=== PATIENT | female | born 1950 | race African-American/Black ===

== ENCOUNTER 2018-04-15 11:30 | Inpatient (IN) | payer MEDICARE, MEDICAID ==
[~2018-04-15] VITALS: Ht 162.6 cm; Wt 72.7 kg
[2018-04-15 12:11] VITALS: BP 187/91
--- NOTE | 2018-04-15 12:13 | Emergency Room Report ---
History of Present Illness General Chief Complaint: Dizziness Source: Patient Present Illness HPI The patient presents with a strange feeling in her head that began on . It's been intermittent. It was worse when she stood up. She is very clear that it's not spinning in her head. She denies any palpitations, ringing in her ears, chest pain during these episodes. She feels better when she lays back down or is resting. She has occasional nausea but doesn't seem to be associated with these episodes. She denies losing her vision or hearing during these episodes. The patient has a history of hypertension. She was on a diuretic but stopped over a year ago. She's taking other supplements to control her pressure. She was told that she has some problem with her thyroid in the past but never had it worked up. Only blood work was performed. However, she does state she did not tolerate the medicine - it caused irregular heart rate. She denies any cough, fever, chills, dysuria, diarrhea, constipation. She does take bran in her diet and this is caused her stools to be a little bit looser. She's recently had stress at work. She's passed that stressful time at the moment however, she has sustained several losses in her family which continue to affect her. 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 Last Menstrual Period: NA Now: No Reviewed Nursing Documentation: PMH: Agreed; PSxH: Agreed Nursing Documentation-PMH Past Medical History: No History, Except For Hx Hypertension: Yes Review of Systems All Other Systems: negative except mentioned in HPI Physical Exam Vital Signs Date Time Temp Pulse Resp B/P (MAP) Pulse Ox O2 Delivery O2 Flow Rate FiO2 04/15/18 11:35 98.4 96 16 187/91 97 Room Air 98.4 Sp02 EP Interpretation: reviewed, normal General Appearance: well appearing, no apparent distress, GCS 15 Head: normocephalic Eyes: bilateral eye normal inspection ENT: moist mucus membranes Neck: supple, thyromegaly - large irregular goiter, larger on L Respiratory: lungs clear, normal breath sounds Cardiovascular #1: regular rate, rhythm Cardiovascular #2: 2+ radial (R) Gastrointestinal: normal inspection, normal bowel sounds, non tender, no mass, non-distended Musculoskeletal: back normal, gait/station normal, normal range of motion Neurologic: alert, oriented x3, 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 Differential includes acute myocardial infarction, arrhythmia, hypovolemia, electrolyte imbalance, diabetes, stress amongst others. She also has a fairly large goiter at this time and thyroid abnormalities could be contributing to this. Evaluation will be with EKG, chest x-ray and labs. We will be performing orthostatic vital signs. Based on her neurologic exam at this time she is not having a stroke and CT is not indicated. EKG without injury. Labs with normal CBC, elevated ESR. CMP with slightly low potassium, normal renal function, elevated LFTs. UA with pyuria. THS, T4, T3 demonstrated hypothyroidism. Rocephin given for UTI. BP remains high and Norvasc is given. Consideration for starting thyroid, however as she had an adverse reaction in the past, defer to endocrine. Patient somewhat improved, however due to symptomatology, HTN and abnormal labs (liver and thyroid) with goiter, admitted. Admit Dr. Luis brantley. Laboratory Tests Test 04/15/18 11:50 04/15/18 13:20 White Blood Count 5.7 K/UL (4.8-10.8) Red Blood Count 4.14 M/UL (4.20-5.40) L Hemoglobin 12.8 G/DL (12.0-16.0) Hematocrit 40.6 % (37.0-47.0) Mean Corpuscular Volume 98 FL (80-99) Mean Corpuscular Hemoglobin 31.0 PG (27.0-31.0) Mean Corpuscular Hemoglobin Concent 31.6 G/DL (32.0-36.0) L Red Cell Distribution Width 13.1 % (11.6-14.8) Platelet Count 184 K/UL (150-450) Mean Platelet Volume 9.7 FL (6.5-10.1) Neutrophils (%) (Auto) 51.4 % (45.0-75.0) Lymphocytes (%) (Auto) 32.8 % (20.0-45.0) Monocytes (%) (Auto) 14.0 % (1.0-10.0) H Eosinophils (%) (Auto) 1.0 % (0.0-3.0) Basophils (%) (Auto) 0.8 % (0.0-2.0) Erythrocyte Sedimentation Rate 34 MM/HR (0-30) H Prothrombin Time 10.1 SEC (9.30-11.50) Prothrombin Time INR 1.0 (0.9-1.1) PTT 27 SEC (23-33) Sodium Level 136 MMOL/L (136-145) Potassium Level 3.4 MMOL/L (3.5-5.1) L Chloride Level 101 MMOL/L (98-107) Carbon Dioxide Level 30 MMOL/L (21-32) Anion Gap 5 mmol/L (5-15) Blood Urea Nitrogen 12 mg/dL (7-18) Creatinine 0.9 MG/DL (0.55-1.30) Estimate Glomerular Filtration Rate > 60 mL/min (>60) Glucose Level 152 MG/DL (74-106) H Calcium Level 9.1 MG/DL (8.5-10.1) Total Bilirubin 0.8 MG/DL (0.2-1.0) Aspartate Amino Transferase (AST) 137 U/L (15-37) H Alanine Aminotransferase (ALT) 170 U/L (12-78) H Alkaline Phosphatase 631 U/L (46-116) H Total Creatine Kinase 78 U/L (26-308) Troponin I 0.000 ng/mL (0.000-0.056) Pro-B-Type Natriuretic Peptide 193 pg/mL (0-125) H Total Protein 9.2 G/DL (6.4-8.2) H Albumin 3.1 G/DL (3.4-5.0) L Globulin 6.1 g/dL Albumin/Globulin Ratio 0.5 (1.0-2.7) L Thyroid Stimulating Hormone (TSH) 18.001 uiU/mL (0.358-3.740) Free Thyroxine 0.48 NG/DL (0.76-1.46) L Free Triiodothyronine 2.2 pg/mL (2.3-4.2) L Urine Color Yellow Urine Appearance Clear Urine pH 5 (4.5-8.0) Urine Specific [place] 1.025 (1.005-1.035) Urine Protein 1+ (NEGATIVE) H Urine Glucose (UA) Negative (NEGATIVE) Urine Ketones Negative (NEGATIVE) Urine Occult Blood 2+ (NEGATIVE) H Urine Nitrite Negative (NEGATIVE) Urine Bilirubin Negative (NEGATIVE) Urine Urobilinogen 1 MG/DL (0.0-1.0) H Urine Leukocyte Esterase 3+ (NEGATIVE) H Urine RBC 2-4 /HPF (0 - 2) H Urine WBC 15-20 /HPF (0 - 2) H Urine Squamous Epithelial Cells Few /LPF (NONE/OCC) Urine Bacteria Few /HPF (NONE) Urine Mucus Few /LPF (NONE/OCC) H EKG Diagnostic Results Rate: normal Rhythm: NSR ST Segments: no acute changes Rhythm Strip Diag. Results EP Interpretation: yes Rhythm: NSR, no PVC's, no ectopy Last Vital Signs Date Time Temp Pulse Resp B/P (MAP) Pulse Ox O2 Delivery O2 Flow Rate FiO2 04/16/18 09:48 168/104 04/16/18 08:00 97.7 85 22 97 Room Air 97.7 Status: improved Disposition: ADMITTED INPATIENT Condition: Serious Braden Alonso M.D. Apr 15, 2018 12:13
[2018-04-15 12:14] VITALS: BP_SYST 176; BP_SYST 185; BP_SYST 201; BP_DIAS 105; BP_DIAS 86; BP_DIAS 92
[2018-04-15 12:15] LABS: BASOPHILS % (AUTO) 0.8 % (0.0-2.0); HEMATOCRIT 40.6 % (37.0-47.0); HEMOGLOBIN 12.8 G/DL (12.0-16.0); LYMPHOCYTES % (AUTO) 32.8 % (20.0-45.0); MEAN CORPUSCULAR VOLUME 98 FL (80-99); NEUTROPHILS % (AUTO) 51.4 % (45.0-75.0); PLATELET COUNT 184 K/UL (150-450); RED BLOOD COUNT 4.14 M/UL (4.20-5.40); RED CELL DISTRIBUTION WIDTH 13.1 % (11.6-14.8); WHITE BLOOD COUNT 5.7 K/UL (4.8-10.8)
[2018-04-15 12:25] LABS: ANION GAP 5 mmol/L (5-15); BLOOD UREA NITROGEN 12 mg/dL (7-18); CALCIUM 9.1 MG/DL (8.5-10.1); CARBON DIOXIDE 30 MMOL/L (21-32); CHLORIDE 101 MMOL/L (98-107); CREATININE 0.9 MG/DL (0.55-1.30); POTASSIUM 3.4 MMOL/L (3.5-5.1); SODIUM 136 MMOL/L (136-145)
[2018-04-15 12:38] LABS: ALANINE AMINOTRANSFERASE 170 U/L (12-78); ALBUMIN 3.1 G/DL (3.4-5.0); ALBUMIN/GLOBULIN RATIO 0.5 (1.0-2.7); ALKALINE PHOSPHATASE 631 U/L (46-116); ASPARTATE AMINO TRANSFERASE 137 U/L (15-37); BILIRUBIN,TOTAL 0.8 MG/DL (0.2-1.0); CREATINE KINASE 78 U/L (26-308)
[2018-04-15 13:35] LABS: APPEARANCE,URINE CLEAR; BILIRUBIN, URINE NEGATIVE (NEGATIVE); GLUCOSE, URINE (UA) NEGATIVE (NEGATIVE); KETONES,URINE NEGATIVE (NEGATIVE); LEUKOCYTE ESTERASE ,URINE 3+ (NEGATIVE); NITRITE,URINE NEGATIVE (NEGATIVE); PH,URINE 5 (4.5-8.0); PROTEIN,URINE 1+ (NEGATIVE); UROBILINOGEN,URINE 1 MG/DL (0.0-1.0)
[2018-04-15 13:47] LABS: COLOR,URINE YELLOW
[2018-04-15 14:06] VITALS: BP 175/89
[2018-04-15] MEDS ORDERED: cefTRIAXone 1 GM in NS 55 ML IVPB ONE (14:15)
[2018-04-15] MEDS ORDERED: NKM (16:24)
[2018-04-15 16:33] VITALS: BP 170/80
--- NOTE | 2018-04-15 17:40 | Cardiology Report ---
APPROVED REPORT EKG Measurement Heart [id number] Normal sinus rhythm Cannot rule out Anterior infarct, age undetermined Abnormal ECG
[2018-04-15 20:00] VITALS: BP 149/90
[2018-04-15] MEDS: Aspirin Baby 81mg ORAL SCH (20:49)
[2018-04-15] MEDS: Heparin 5000 units/ml inj SUBQ SCH (22:00)
[2018-04-16] VITALS: BP 118/72
[2018-04-16 04:00] VITALS: BP 117/68
[2018-04-16] MEDS: Heparin 5000 units/ml inj SUBQ SCH ×3 (05:13→22:00)
[2018-04-16 08:00] VITALS: BP 168/104
[2018-04-16] MEDS: Aspirin Baby 81mg ORAL SCH (09:47)
--- NOTE | 2018-04-16 11:08 | Consultation ---
History of Present Illness General Date patient seen: Apr 16, 2018 Chief Complaint: Dizziness Present Illness HPI 68-year-old female with history of hypertension, who was also diagnosed with hypothyroidism last year. the pt stated that she stopped her meds. the pt is endorsing low energy and depressed mood. the pt is anxious and has been having anhedonia, no si/hi Allergies: Coded Allergies: No Known Allergies (Unverified , 04/15/18) Medication History Scheduled No Known Medications* (NKM - No Known Medications*), 0 ., (Reported) Patient History Limited by: medical condition History Provided By: Patient, Medical Record, PMD Healthcare decision maker Resuscitation status Advanced Directive on File No Past Medical/Surgical History Past Medical/Surgical History: (1) Goiter (2) UTI (urinary tract infection) (3) Hypothyroid (4) Hypertensive urgency (5) HTN (hypertension) (6) Constipation (7) Hypothyroidism (8) Abnormal LFTs (9) Ataxia Review of Systems Psychiatric: Reports: prior hx, anxiety, depressed feelings, emotional problems Physical Exam General Appearance: WD/WN, no apparent distress, alert Neurologic: oriented x 3, responsive, depressed affect Last 24 Hour Vital Signs Date Time Temp Pulse Resp B/P (MAP) Pulse Ox O2 Delivery O2 Flow Rate FiO2 04/16/18 09:48 168/104 04/16/18 08:00 97.7 85 22 168/104 97 Room Air 97.7 04/16/18 04:00 97.7 87 20 117/68 98 Room Air 97.7 04/16/18 04:00 80 04/16/18 00:00 88 04/16/18 00:00 98.1 77 20 118/72 96 Room Air 98.1 04/15/18 20:49 95 149/90 04/15/18 20:00 98.1 95 21 149/90 96 Room Air 98.1 04/15/18 20:00 95 04/15/18 16:39 98.4 78 17 170/80 99 Room Air 98.4 93 04/15/18 16:33 98.4 78 17 170/80 99 Room Air 98.4 04/15/18 15:21 83 175/89 04/15/18 14:06 98.4 83 16 175/89 99 Room Air 98.4 04/15/18 12:14 85 176/86 88 185/105 93 201/92 04/15/18 12:11 98.4 84 16 187/91 97 Room Air 98.4 04/15/18 11:35 98.4 96 16 187/91 97 Room Air 98.4 Laboratory Tests Test 04/15/18 11:50 04/15/18 13:20 04/16/18 07:05 White Blood Count 5.7 K/UL (4.8-10.8) Red Blood Count 4.14 M/UL (4.20-5.40) L Hemoglobin 12.8 G/DL (12.0-16.0) Hematocrit 40.6 % (37.0-47.0) Mean Corpuscular Volume 98 FL (80-99) Mean Corpuscular Hemoglobin 31.0 PG (27.0-31.0) Mean Corpuscular Hemoglobin Concent 31.6 G/DL (32.0-36.0) L Red Cell Distribution Width 13.1 % (11.6-14.8) Platelet Count 184 K/UL (150-450) Mean Platelet Volume 9.7 FL (6.5-10.1) Neutrophils (%) (Auto) 51.4 % (45.0-75.0) Lymphocytes (%) (Auto) 32.8 % (20.0-45.0) Monocytes (%) (Auto) 14.0 % (1.0-10.0) H Eosinophils (%) (Auto) 1.0 % (0.0-3.0) Basophils (%) (Auto) 0.8 % (0.0-2.0) Erythrocyte Sedimentation Rate 34 MM/HR (0-30) H Prothrombin Time 10.1 SEC (9.30-11.50) Prothromb Time International Ratio 1.0 (0.9-1.1) Activated Partial Thromboplast Time 27 SEC (23-33) Sodium Level 136 MMOL/L (136-145) Potassium Level 3.4 MMOL/L (3.5-5.1) L Chloride Level 101 MMOL/L (98-107) Carbon Dioxide Level 30 MMOL/L (21-32) Anion Gap 5 mmol/L (5-15) Blood Urea Nitrogen 12 mg/dL (7-18) Creatinine 0.9 MG/DL (0.55-1.30) Estimat Glomerular Filtration Rate > 60 mL/min (>60) Glucose Level 152 MG/DL (74-106) H Calcium Level 9.1 MG/DL (8.5-10.1) Total Bilirubin 0.8 MG/DL (0.2-1.0) Aspartate Amino Transf (AST/SGOT) 137 U/L (15-37) H Alanine Aminotransferase (ALT/SGPT) 170 U/L (12-78) H Alkaline Phosphatase 631 U/L (46-116) H Total Creatine Kinase 78 U/L (26-308) Troponin I 0.000 ng/mL (0.000-0.056) Pro-B-Type Natriuretic Peptide 193 pg/mL (0-125) H Total Protein 9.2 G/DL (6.4-8.2) H Albumin 3.1 G/DL (3.4-5.0) L Globulin 6.1 g/dL Albumin/Globulin Ratio 0.5 (1.0-2.7) L Thyroid Stimulating Hormone (TSH) 18.001 uiU/mL (0.358-3.740) 23.511 uiU/mL (0.358-3.740) Free Thyroxine 0.48 NG/DL (0.76-1.46) L Free Triiodothyronine 2.2 pg/mL (2.3-4.2) L Urine Color Yellow Urine Appearance Clear Urine pH 5 (4.5-8.0) Urine Specific [place] 1.025 (1.005-1.035) Urine Protein 1+ (NEGATIVE) H Urine Glucose (UA) Negative (NEGATIVE) Urine Ketones Negative (NEGATIVE) Urine Occult Blood 2+ (NEGATIVE) H Urine Nitrite Negative (NEGATIVE) Urine Bilirubin Negative (NEGATIVE) Urine Urobilinogen 1 MG/DL (0.0-1.0) H Urine Leukocyte Esterase 3+ (NEGATIVE) H Urine RBC 2-4 /HPF (0 - 2) H Urine WBC 15-20 /HPF (0 - 2) H Urine Squamous Epithelial Cells Few /LPF (NONE/OCC) Urine Bacteria Few /HPF (NONE) Urine Mucus Few /LPF (NONE/OCC) H Microbiology Date/Time Source Procedure Growth Status 04/15/18 13:20 Urine,Clean Catch Urine Culture - Preliminary Resulted Height (Feet): 5 Height (Inches): 4.00 Weight (Pounds): 161 Medications Current Medications Medications (Trade) Dose Ordered Sig/Francie Route PRN Reason Start Time Stop Time Status Last Admin Dose Admin Acetaminophen (Tylenol) 650 mg Q6H PRN ORAL For Headache 04/15/18 19:00 05/15/18 18:59 Acetaminophen (Tylenol) 650 mg Q6H PRN ORAL Temp > 100.5 04/15/18 19:00 05/15/18 18:59 Aspirin (ASA) 81 mg DAILY ORAL 04/15/18 20:00 05/15/18 19:59 04/16/18 09:47 Carvedilol (Coreg) 3.125 mg EVERY 12 HOURS ORAL 04/15/18 21:00 05/15/18 20:59 04/15/18 20:49 Clonidine HCl (Catapres Tab) 0.1 mg Q4H PRN ORAL SBP > 160 mmHg 04/15/18 19:00 05/15/18 18:59 04/16/18 09:48 Heparin Sodium (Porcine) (Heparin 5000 units/ml) 5,000 units EVERY 8 HOURS SUBQ 04/15/18 22:00 05/15/18 21:59 Ondansetron HCl (Zofran) 4 mg Q4H PRN IVP Nausea & Vomiting 04/15/18 19:00 05/15/18 18:59 Assessment/Plan Status: stable Assessment/Plan [place] [facility] [place] was restarted on thyroid meds will start low dose antidepressants Erasmo Newton MD Apr 16, 2018 11:08
--- NOTE | 2018-04-16 11:54 | Diagnostic Imaging Report ---
Indication: Dyspnea Comparison: None A single view chest radiograph was obtained. Findings: Cardiomediastinal appearance is within normal limits for age. Pulmonary vascularity is appropriate. The diaphragmatic contour is smooth and costophrenic angles are sharp. No pleural effusions are identified. The bones are unremarkable. Impression: No acute findings
[2018-04-16 12:00] VITALS: BP 135/83
[2018-04-16] MEDS ORDERED: Isovue-300 100ml vial INJ PRN (12:00)
--- NOTE | 2018-04-16 12:00 | History & Physical ---
History and Physical History & Physicial Dictated for Int Med-Dr Smith no. [id number]. Bennie East MD Apr 16, 2018 11:59
--- NOTE | 2018-04-16 12:10 | Consultation ---
History of Present Illness General Date patient seen: Apr 16, 2018 Chief Complaint: Dizziness Present Illness HPI 68 year old female with hx of HTN, off hypertensive meds presented with acute encephalopathy. Her BP was 180's. She has been trying to treat her BP with organic supplements. Allergies: Coded Allergies: No Known Allergies (Unverified , 04/15/18) Medication History Scheduled No Known Medications* (NKM - No Known Medications*), 0 ., (Reported) Patient History Healthcare decision maker Resuscitation status Advanced Directive on File No Past Medical/Surgical History Past Medical/Surgical History: (1) HTN (hypertension) Review of Systems All Other Systems: negative except mentioned in HPI Physical Exam General Appearance: WD/WN Lines, tubes and drains: peripheral HEENT: normocephalic, atraumatic Neck: non-tender, normal alignment Respiratory/Chest: chest wall non-tender, lungs clear Breasts: no masses Cardiovascular/Chest: normal peripheral pulses Abdomen: normal bowel sounds, non tender Genitourinary/Rectal: normal genital exam Extremities: normal range of motion Skin Exam: normal pigmentation 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 Last 24 Hour Vital Signs Date Time Temp Pulse Resp B/P (MAP) Pulse Ox O2 Delivery O2 Flow Rate FiO2 04/16/18 09:48 168/104 04/16/18 08:00 97.7 85 22 168/104 97 Room Air 97.7 04/16/18 04:00 97.7 87 20 117/68 98 Room Air 97.7 04/16/18 04:00 80 04/16/18 00:00 88 04/16/18 00:00 98.1 77 20 118/72 96 Room Air 98.1 04/15/18 20:49 95 149/90 04/15/18 20:00 98.1 95 21 149/90 96 Room Air 98.1 04/15/18 20:00 95 04/15/18 16:39 98.4 78 17 170/80 99 Room Air 98.4 93 04/15/18 16:33 98.4 78 17 170/80 99 Room Air 98.4 04/15/18 15:21 83 175/89 04/15/18 14:06 98.4 83 16 175/89 99 Room Air 98.4 04/15/18 12:14 85 176/86 88 185/105 93 201/92 04/15/18 12:11 98.4 84 16 187/91 97 Room Air 98.4 Laboratory Tests Test 04/15/18 13:20 04/16/18 07:05 Urine Color Yellow Urine Appearance Clear Urine pH 5 (4.5-8.0) Urine Specific [place] 1.025 (1.005-1.035) Urine Protein 1+ (NEGATIVE) H Urine Glucose (UA) Negative (NEGATIVE) Urine Ketones Negative (NEGATIVE) Urine Occult Blood 2+ (NEGATIVE) H Urine Nitrite Negative (NEGATIVE) Urine Bilirubin Negative (NEGATIVE) Urine Urobilinogen 1 MG/DL (0.0-1.0) H Urine Leukocyte Esterase 3+ (NEGATIVE) H Urine RBC 2-4 /HPF (0 - 2) H Urine WBC 15-20 /HPF (0 - 2) H Urine Squamous Epithelial Cells Few /LPF (NONE/OCC) Urine Bacteria Few /HPF (NONE) Urine Mucus Few /LPF (NONE/OCC) H Thyroid Stimulating Hormone (TSH) 23.511 uiU/mL (0.358-3.740) Microbiology Date/Time Source Procedure Growth Status 04/15/18 13:20 Urine,Clean Catch Urine Culture - Preliminary Resulted Height (Feet): 5 Height (Inches): 4.00 Weight (Pounds): 161 Medications Current Medications Medications (Trade) Dose Ordered Sig/Francie Route PRN Reason Start Time Stop Time Status Last Admin Dose Admin Acetaminophen (Tylenol) 650 mg Q6H PRN ORAL For Headache 04/15/18 19:00 05/15/18 18:59 Acetaminophen (Tylenol) 650 mg Q6H PRN ORAL Temp > 100.5 04/15/18 19:00 05/15/18 18:59 Amlodipine Besylate (Norvasc) 10 mg DAILY ORAL 04/16/18 12:00 05/16/18 11:59 Aspirin (ASA) 81 mg DAILY ORAL 04/15/18 20:00 05/15/18 19:59 04/16/18 09:47 Carvedilol (Coreg) 3.125 mg EVERY 12 HOURS ORAL 04/15/18 21:00 05/15/18 20:59 04/15/18 20:49 Ceftriaxone Sodium 1 gm/ Dextrose 55 ml @ 110 mls/hr Q24H IVPB 04/16/18 12:00 04/23/18 11:59 UNV Clonidine HCl (Catapres Tab) 0.1 mg Q4H PRN ORAL SBP > 160 mmHg 04/15/18 19:00 05/15/18 18:59 04/16/18 09:48 Heparin Sodium (Porcine) (Heparin 5000 units/ml) 5,000 units EVERY 8 HOURS SUBQ 04/15/18 22:00 05/15/18 21:59 Iopamidol (Isovue-300 100ml) 100 ml NOW PRN INJ Radiology Procedure 04/16/18 12:00 UNV Levothyroxine Sodium (Synthroid) 100 mcg DAILY@0630 ORAL 04/17/18 06:30 05/17/18 06:29 UNV Ondansetron HCl (Zofran) 4 mg Q4H PRN IVP Nausea & Vomiting 04/15/18 19:00 05/15/18 18:59 Assessment/Plan Problem List: (1) Hypertensive urgency ICD Codes: I16.0 - Hypertensive urgency SNOMED: 461280683 (2) UTI (urinary tract infection) ICD Codes: N39.0 - Urinary tract infection, site not specified SNOMED: 07567974 Qualifiers: Qualified Codes: N30.00 - Acute cystitis without hematuria (3) Goiter ICD Codes: E04.9 - Nontoxic goiter, unspecified SNOMED: 8764947 Assessment/Plan monitor BP telemetry check urine cultures echo cardiogram dvt prophylaxis Cardiology to see. Grupo Kruger MD Apr 16, 2018 12:10
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
[2018-04-16] MEDS: cefTRIAXone 1 GM in D5W 110 ML IVPB SCH (15:09)
[2018-04-16 16:00] VITALS: BP 128/72
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
--- NOTE | 2018-04-16 17:05 | Consultation ---
History of Present Illness General Date patient seen: Apr 16, 2018 Time patient seen: 12:58 Chief Complaint: Dizziness Referring physician: KINZA WEBB Reason for Consultation: TRANAMINITIS Present Illness HPI Patient with HTN and hypothyroidism came in with dizziness and was found to have hypertensive urgency and hypothyroidism. NO previous hx of IL/PE/DVT/CVA Allergies: Coded Allergies: No Known Allergies (Unverified , 04/15/18) Medication History Scheduled No Known Medications* (NKM - No Known Medications*), 0 ., (Reported) Patient History Healthcare decision maker Resuscitation status Advanced Directive on File No Review of Systems Constitutional: Reports: weakness Eye: Reports: no symptoms Respiratory: Reports: no symptoms Cardiovascular: Reports: no symptoms Gastrointestinal: Reports: no symptoms Genitourinary: Reports: no symptoms Musculoskeletal: Reports: no symptoms Skin: Reports: no symptoms Psychiatric: Reports: no symptoms Endocrine: Reports: no symptoms Hematologic/Lymphatic: Reports: no symptoms Physical Exam General Appearance: no apparent distress Lines, tubes and drains: peripheral HEENT: normocephalic Neck: non-tender Respiratory/Chest: chest wall non-tender Cardiovascular/Chest: normal peripheral pulses Abdomen: normal bowel sounds Extremities: normal range of motion, non-tender Skin Exam: normal pigmentation 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 Last 24 Hour Vital Signs Date Time Temp Pulse Resp B/P (MAP) Pulse Ox O2 Delivery O2 Flow Rate FiO2 04/16/18 16:00 97.2 77 20 128/72 96 Room Air 97.2 04/16/18 15:09 80 135/83 04/16/18 12:00 97.0 78 20 135/83 96 Room Air 97.0 04/16/18 12:00 80 04/16/18 09:48 168/104 04/16/18 08:00 97.7 85 22 168/104 97 Room Air 97.7 04/16/18 08:00 88 04/16/18 04:00 97.7 87 20 117/68 98 Room Air 97.7 04/16/18 04:00 80 04/16/18 00:00 88 04/16/18 00:00 98.1 77 20 118/72 96 Room Air 98.1 04/15/18 20:49 95 149/90 04/15/18 20:00 98.1 95 21 149/90 96 Room Air 98.1 04/15/18 20:00 95 Laboratory Tests Test 04/16/18 07:05 Thyroid Stimulating Hormone (TSH) 23.511 uiU/mL (0.358-3.740) Hepatitis A IgM Antibody Pending Hepatitis B Surface Antigen Pending Hepatitis B Core IgM Antibody Pending Hepatitis C Antibody Pending Height (Feet): 5 Height (Inches): 4.00 Weight (Pounds): 161 Medications Current Medications Medications (Trade) Dose Ordered Sig/Francie Route PRN Reason Start Time Stop Time Status Last Admin Dose Admin Acetaminophen (Tylenol) 650 mg Q6H PRN ORAL For Headache 04/15/18 19:00 05/15/18 18:59 Acetaminophen (Tylenol) 650 mg Q6H PRN ORAL Temp > 100.5 04/15/18 19:00 05/15/18 18:59 Amlodipine Besylate (Norvasc) 10 mg DAILY ORAL 04/16/18 12:00 05/16/18 11:59 04/16/18 15:09 Aspirin (ASA) 81 mg DAILY ORAL 04/15/18 20:00 05/15/18 19:59 04/16/18 09:47 Carvedilol (Coreg) 3.125 mg EVERY 12 HOURS ORAL 04/15/18 21:00 05/15/18 20:59 04/15/18 20:49 Ceftriaxone Sodium 1 gm/ Dextrose 110 ml @ 220 mls/hr Q24H IVPB 04/16/18 13:00 04/23/18 12:59 04/16/18 15:09 Clonidine HCl (Catapres Tab) 0.1 mg Q4H PRN ORAL SBP > 160 mmHg 04/15/18 19:00 05/15/18 18:59 04/16/18 09:48 Docusate Sodium (Colace) 100 mg TWICE A DAY ORAL 04/16/18 18:00 05/16/18 17:59 Heparin Sodium (Porcine) (Heparin 5000 units/ml) 5,000 units EVERY 8 HOURS SUBQ 04/15/18 22:00 05/15/18 21:59 Iopamidol (Isovue-300 100ml) 100 ml NOW PRN INJ Radiology Procedure 04/16/18 12:00 04/18/18 11:59 Levothyroxine Sodium (Synthroid) 100 mcg DAILY@0630 ORAL 04/17/18 06:30 05/17/18 06:29 Ondansetron HCl (Zofran) 4 mg Q4H PRN IVP Nausea & Vomiting 04/15/18 19:00 05/15/18 18:59 Polyethylene Glycol (Miralax) 17 gm BEDTIME ORAL 04/16/18 21:00 05/16/18 20:59 Assessment/Plan Status: stable Assessment/Plan Hypertension Hypothyroid Elevated LFT Dizziness/ataxia 1) Echocardiogram 2) Outpatient stress test for risk stratification 3) Endo consult for hypothyroid 4) BP control: Norvasc and coreg 5) Low salt diet 6) Aspirin Braden Diaz M.D. Apr 16, 2018 17:05
[2018-04-16] MEDS: Docusate 100mg cap ORAL SCH (18:15)
[2018-04-16 20:00] VITALS: BP 128/63
[2018-04-16] MEDS: Miralax 17gm pkt ORAL SCH (22:11)
[2018-04-17] VITALS: BP 130/81
--- NOTE | 2018-04-17 01:00 | Consultation ---
DATE OF CONSULTATION: 04/16/2018 ENDOCRINOLOGY CONSULTATION CONSULTING PHYSICIAN: Deshawn Martel M.D. REFERRING PHYSICIAN: William Smith M.D. REASON FOR CONSULTATION: Abnormal thyroid function test. HISTORY OF PRESENT ILLNESS: The patient is a 68-year-old female with history of hypertension, who was also diagnosed with hypothyroidism last year. She stopped taking her thyroid hormone replacement and tried to manage her hypothyroidism with natural supplements. She presented to the hospital with hypertensive urgency, TSH was elevated at 18 and she was started on levothyroxine 100 mcg daily. PAST MEDICAL HISTORY: 1. Hypertension. 2. Hypothyroidism. MEDICATIONS: As an outpatient, none. FAMILY HISTORY: Negative for thyroid disease. SOCIAL HISTORY: No smoking, alcohol, or drug use. REVIEW OF SYSTEMS: A 12-point review of systems was performed. The pertinent positives and negatives are as mentioned in the history of present illness. PHYSICAL EXAMINATION: VITAL SIGNS: Blood pressure 128/72, heart rate 77, temperature 97.2 degrees, and respiratory rate of 20. HEENT: Pupils are equal and reactive to light. Sclerae anicteric. NECK: No JVD. Positive for thyromegaly and nodular thyroid. HEART: Regular. LUNGS: Clear. ABDOMEN: Positive bowel sounds. EXTREMITIES: No clubbing, cyanosis, or edema. LABORATORY AND DIAGNOSTIC DATA: Laboratory values, WBC 5.7, hemoglobin 12.8, hematocrit 40.6, and platelets of 184. Sodium 136, potassium 3.4, chloride 101, bicarbonate 30, BUN 12, creatinine 0.9, GFR more than 60, and glucose 152. TSH 23, initial was 18 and repeat 23, free T4 of 0.48, and free T3 of 2.2. DIAGNOSES: 1. Hypertensive urgency. 2. Hypothyroidism, noncompliance with thyroid hormone replacement. 3. Goiter on exam. DISCUSSION: The patient has been already started on levothyroxine 100 mcg, which is an appropriate dose. She should stay on this dose and repeat thyroid function test should be done in about six weeks. Due to abnormal thyroid exam, a thyroid ultrasound is ordered. I will follow the results and further advice. Thank you, Dr. Smith, for the courtesy of this consultation. Deshawn Martel M.D. DR: TYLER JOB#: [id number] CC: ASHLEY
[2018-04-17 04:00] VITALS: BP 123/71
[2018-04-17] MEDS: Heparin 5000 units/ml inj SUBQ SCH ×3 (05:59→21:58)
[2018-04-17 07:02] LABS: BASOPHILS % (AUTO) 0.9 % (0.0-2.0); EOSINOPHILS % (AUTO) 2.7 % (0.0-3.0); HEMATOCRIT 38.5 % (37.0-47.0); HEMOGLOBIN 12.7 G/DL (12.0-16.0); LYMPHOCYTES % (AUTO) 33.7 % (20.0-45.0); MEAN CORPUSCULAR VOLUME 98 FL (80-99); MONOCYTES % (AUTO) 14.1 % (1.0-10.0); NEUTROPHILS % (AUTO) 48.6 % (45.0-75.0); PLATELET COUNT 180 K/UL (150-450); RED BLOOD COUNT 3.94 M/UL (4.20-5.40); RED CELL DISTRIBUTION WIDTH 13.3 % (11.6-14.8); WHITE BLOOD COUNT 5.7 K/UL (4.8-10.8)
--- NOTE | 2018-04-17 07:02 | General Progress Note ---
Assessment/Plan Problem List: (1) Goiter ICD Codes: E04.9 - Nontoxic goiter, unspecified SNOMED: 7572809 (2) Hypothyroid ICD Codes: E03.9 - Hypothyroidism, unspecified SNOMED: 70636429 Qualifiers: Qualified Codes: E03.9 - Hypothyroidism, unspecified (3) Hypertensive urgency ICD Codes: I16.0 - Hypertensive urgency SNOMED: 153055622 Assessment/Plan thyroid US ordered - not done yet continue Synthroid 100 mcg daily repeat TSH in 4-6 weeks Subjective Allergies: Coded Allergies: No Known Allergies (Unverified , 04/15/18) All Systems: reviewed and negative except above Subjective events noted Objective Last 24 Hour Vital Signs Date Time Temp Pulse Resp B/P (MAP) Pulse Ox O2 Delivery O2 Flow Rate FiO2 04/17/18 04:00 74 04/17/18 04:00 98.0 73 20 123/71 97 Room Air 98.0 04/17/18 00:00 75 04/17/18 00:00 98.0 70 20 130/81 96 Room Air 98.0 04/16/18 22:13 70 128/63 04/16/18 20:00 98.8 70 20 128/63 97 Room Air 98.8 04/16/18 20:00 83 04/16/18 16:00 97.2 77 20 128/72 96 Room Air 97.2 04/16/18 16:00 73 04/16/18 15:09 80 135/83 04/16/18 12:00 97.0 78 20 135/83 96 Room Air 97.0 04/16/18 12:00 80 04/16/18 09:48 168/104 04/16/18 08:00 97.7 85 22 168/104 97 Room Air 97.7 04/16/18 08:00 88 Laboratory Tests 04/16/18 07:05: Thyroid Stimulating Hormone (TSH) 23.511H, Hepatitis A IgM Antibody [Pending], Hepatitis B Surface Antigen [Pending], Hepatitis B Core IgM Antibody [Pending], Hepatitis C Antibody [Pending] 04/17/18 06:20: White Blood Count [Pending], Red Blood Count [Pending], Hemoglobin [Pending], Hematocrit [Pending], Mean Corpuscular Volume [Pending], Mean Corpuscular Hemoglobin [Pending], Mean Corpuscular Hemoglobin Concent [Pending], Red Cell Distribution Width [Pending], Platelet Count [Pending], Mean Platelet Volume [ Pending], Neutrophils (%) (Auto) [Pending], Lymphocytes (%) (Auto) [Pending], Monocytes (%) (Auto) [Pending], Eosinophils (%) (Auto) [Pending], Basophils (%) (Auto) [Pending], Sodium Level [Pending], Potassium Level [Pending], Chloride Level [Pending], Carbon Dioxide Level [Pending], Blood Urea Nitrogen [Pending], Creatinine [Pending], Estimat Glomerular Filtration Rate [Pending], Glucose Level [Pending], Calcium Level [Pending], Total Bilirubin [Pending], Aspartate Amino Transf (AST/SGOT) [Pending], Alanine Aminotransferase (ALT/SGPT) [Pending] , Alkaline Phosphatase [Pending], Total Protein [Pending], Albumin [Pending], Globulin [Pending] Height (Feet): 5 Height (Inches): 4.00 Weight (Pounds): 161 General Appearance: no apparent distress Neck: normal alignment Cardiovascular: normal rate Respiratory/Chest: lungs clear Abdomen: normal bowel sounds Pelvis: normal external exam Edema: no edema noted Arm (L), no edema noted Arm (R), no edema noted Leg (L), no edema noted Leg (R), no edema noted Pedal (L), no edema noted Pedal (R), no edema noted Generalized Objective Current Medications Medications (Trade) Dose Ordered Sig/Francie Route PRN Reason Start Time Stop Time Status Last Admin Dose Admin Acetaminophen (Tylenol) 650 mg Q6H PRN ORAL For Headache 04/15/18 19:00 05/15/18 18:59 Acetaminophen (Tylenol) 650 mg Q6H PRN ORAL Temp > 100.5 04/15/18 19:00 05/15/18 18:59 Amlodipine Besylate (Norvasc) 10 mg DAILY ORAL 04/16/18 12:00 05/16/18 11:59 04/16/18 15:09 Aspirin (ASA) 81 mg DAILY ORAL 04/15/18 20:00 05/15/18 19:59 04/16/18 09:47 Carvedilol (Coreg) 3.125 mg EVERY 12 HOURS ORAL 04/15/18 21:00 05/15/18 20:59 04/16/18 22:13 Ceftriaxone Sodium 1 gm/ Dextrose 110 ml @ 220 mls/hr Q24H IVPB 04/16/18 13:00 04/23/18 12:59 04/16/18 15:09 Clonidine HCl (Catapres Tab) 0.1 mg Q4H PRN ORAL SBP > 160 mmHg 04/15/18 19:00 05/15/18 18:59 04/16/18 09:48 Docusate Sodium (Colace) 100 mg TWICE A DAY ORAL 04/16/18 18:00 05/16/18 17:59 04/16/18 18:15 Heparin Sodium (Porcine) (Heparin 5000 units/ml) 5,000 units EVERY 8 HOURS SUBQ 04/15/18 22:00 05/15/18 21:59 Iopamidol (Isovue-300 100ml) 100 ml NOW PRN INJ Radiology Procedure 04/16/18 12:00 04/18/18 11:59 Levothyroxine Sodium (Synthroid) 100 mcg DAILY@0630 ORAL 04/17/18 06:30 05/17/18 06:29 04/17/18 05:58 Ondansetron HCl (Zofran) 4 mg Q4H PRN IVP Nausea & Vomiting 04/15/18 19:00 05/15/18 18:59 Polyethylene Glycol (Miralax) 17 gm BEDTIME ORAL 04/16/18 21:00 05/16/18 20:59 04/16/18 22:11 Deshawn Martel MD Apr 17, 2018 07:02
[2018-04-17 07:50] LABS: ALANINE AMINOTRANSFERASE 163 U/L (12-78); ALBUMIN 2.9 G/DL (3.4-5.0); ALBUMIN/GLOBULIN RATIO 0.5 (1.0-2.7); ALKALINE PHOSPHATASE 634 U/L (46-116); ANION GAP 5 mmol/L (5-15); ASPARTATE AMINO TRANSFERASE 140 U/L (15-37); BILIRUBIN,TOTAL 0.9 MG/DL (0.2-1.0); BLOOD UREA NITROGEN 15 mg/dL (7-18); CARBON DIOXIDE 25 MMOL/L (21-32); CHLORIDE 105 MMOL/L (98-107); CREATININE 0.8 MG/DL (0.55-1.30); POTASSIUM 4.2 MMOL/L (3.5-5.1); SODIUM 135 MMOL/L (136-145)
[2018-04-17 08:00] VITALS: BP 133/86
[2018-04-17] MEDS: Aspirin Baby 81mg ORAL SCH (08:35)
[2018-04-17] MEDS: Docusate 100mg cap ORAL SCH ×2 (08:35→17:16)
[2018-04-17 11:50] VITALS: BP 125/75
--- NOTE | 2018-04-17 12:00 | Pulmonology Progress Note ---
Assessment/Plan Problems: (1) Hypertensive urgency (2) UTI (urinary tract infection) (3) Hypothyroidism (4) Goiter Assessment/Plan getting CT of abdomen and chest US of goiter continue abx for uti BP better Subjective ROS Limited/Unobtainable: No Constitutional: Reports: no symptoms HEENT: Repors: no symptoms Respiratory: Reports: no symptoms Allergies: Coded Allergies: No Known Allergies (Unverified , 04/15/18) Objective Last 24 Hour Vital Signs Date Time Temp Pulse Resp B/P (MAP) Pulse Ox O2 Delivery O2 Flow Rate FiO2 04/17/18 08:35 82 133/86 04/17/18 08:35 82 133/86 04/17/18 08:00 98.2 82 18 133/86 97 Room Air 98.2 04/17/18 08:00 71 04/17/18 04:00 74 04/17/18 04:00 98.0 73 20 123/71 97 Room Air 98.0 04/17/18 00:00 75 04/17/18 00:00 98.0 70 20 130/81 96 Room Air 98.0 04/16/18 22:13 70 128/63 04/16/18 20:00 98.8 70 20 128/63 97 Room Air 98.8 04/16/18 20:00 83 04/16/18 16:00 97.2 77 20 128/72 96 Room Air 97.2 04/16/18 16:00 73 04/16/18 15:09 80 135/83 04/16/18 12:00 97.0 78 20 135/83 96 Room Air 97.0 04/16/18 12:00 80 General Appearance: WD/WN HEENT: normocephalic Respiratory/Chest: chest wall non-tender, lungs clear Breasts: no masses Cardiovascular: normal peripheral pulses, normal rate Abdomen: normal bowel sounds, soft, non tender, no scars Extremities: no cyanosis, no clubbing 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 Lymphatic: no neck adenopathy Microbiology Date/Time Source Procedure Growth Status 04/15/18 13:20 Urine,Clean Catch Urine Culture - Preliminary Strep Agalactiae Group B Resulted Laboratory Tests 04/17/18 06:20: White Blood Count 5.7, Red Blood Count 3.94L, Hemoglobin 12.7, Hematocrit 38.5, Mean Corpuscular Volume 98, Mean Corpuscular Hemoglobin 32.1H, Mean Corpuscular Hemoglobin Concent 32.9, Red Cell Distribution Width 13.3, Platelet Count 180, Mean Platelet Volume 9.6, Neutrophils (%) (Auto) 48.6, Lymphocytes (%) (Auto) 33.7, Monocytes (%) (Auto) 14.1H, Eosinophils (%) (Auto) 2.7, Basophils (%) ( Auto) 0.9, Sodium Level 135L, Potassium Level 4.2, Chloride Level 105, Carbon Dioxide Level 25, Anion Gap 5, Blood Urea Nitrogen 15, Creatinine 0.8, Estimat Glomerular Filtration Rate > 60, Glucose Level 89, Calcium Level 9.0, Total Bilirubin 0.9, Aspartate Amino Transf (AST/SGOT) 140H, Alanine Aminotransferase (ALT/SGPT) 163H, Alkaline Phosphatase 634H, Total Protein 8.9H, Albumin 2.9L, Globulin 6.0, Albumin/Globulin Ratio 0.5L Current Medications Medications (Trade) Dose Ordered Sig/Francie Route PRN Reason Start Time Stop Time Status Last Admin Dose Admin Acetaminophen (Tylenol) 650 mg Q6H PRN ORAL For Headache 04/15/18 19:00 05/15/18 18:59 Acetaminophen (Tylenol) 650 mg Q6H PRN ORAL Temp > 100.5 04/15/18 19:00 05/15/18 18:59 Amlodipine Besylate (Norvasc) 10 mg DAILY ORAL 04/16/18 12:00 05/16/18 11:59 04/17/18 08:35 Aspirin (ASA) 81 mg DAILY ORAL 04/15/18 20:00 05/15/18 19:59 04/17/18 08:35 Carvedilol (Coreg) 3.125 mg EVERY 12 HOURS ORAL 04/15/18 21:00 05/15/18 20:59 04/17/18 08:35 Ceftriaxone Sodium 1 gm/ Dextrose 110 ml @ 220 mls/hr Q24H IVPB 04/16/18 13:00 04/23/18 12:59 04/16/18 15:09 Clonidine HCl (Catapres Tab) 0.1 mg Q4H PRN ORAL SBP > 160 mmHg 04/15/18 19:00 05/15/18 18:59 04/16/18 09:48 Docusate Sodium (Colace) 100 mg TWICE A DAY ORAL 04/16/18 18:00 05/16/18 17:59 04/17/18 08:35 Heparin Sodium (Porcine) (Heparin 5000 units/ml) 5,000 units EVERY 8 HOURS SUBQ 04/15/18 22:00 05/15/18 21:59 Iopamidol (Isovue-300 100ml) 100 ml NOW PRN INJ Radiology Procedure 04/16/18 12:00 04/18/18 11:59 Levothyroxine Sodium (Synthroid) 100 mcg DAILY@0630 ORAL 04/17/18 06:30 05/17/18 06:29 04/17/18 05:58 Ondansetron HCl (Zofran) 4 mg Q4H PRN IVP Nausea & Vomiting 04/15/18 19:00 05/15/18 18:59 Polyethylene Glycol (Miralax) 17 gm BEDTIME ORAL 04/16/18 21:00 05/16/18 20:59 04/16/18 22:11 Grupo Kruger MD Apr 17, 2018 12:00
[2018-04-17] MEDS: cefTRIAXone 1 GM in D5W 110 ML IVPB SCH (13:09)
--- NOTE | 2018-04-17 13:56 | GI Progress Note ---
Assessment/Plan Problems: (1) Abnormal LFTs ICD Codes: R94.5 - Abnormal results of liver function studies SNOMED: 644231065 (2) Hypothyroid ICD Codes: E03.9 - Hypothyroidism, unspecified SNOMED: 71999279 Qualifiers: Qualified Codes: E03.9 - Hypothyroidism, unspecified (3) Hypertensive urgency ICD Codes: I16.0 - Hypertensive urgency SNOMED: 775626477 (4) Constipation ICD Codes: K59.00 - Constipation, unspecified SNOMED: 46516305 Status: unchanged Status Narrative Discussed with Dr. Dvuall. Assessment/Plan hepatitis panel >> negative Nausea / dizziness most likely from hypertensive crisis BP/DM management zofran prn AP CT pending abdominal US pending utox pending cardiac diet bowel regime given hx of hypothyroidism electrolyte correction trend LFTs fu labs, SPEP r/o MM recommend for outpatient EGD/colonoscopy for initial screening The patient was seen and examined at bedside and all new and available data was reviewed in the patients chart. I agree with the above findings, impression and plan. (Patient seen earlier today. Signature stamp does not reflect patient encounter time.). - Juan Pablo Duvall MD Subjective Subjective dizziness improved tolerating diet Objective Last 24 Hour Vital Signs Date Time Temp Pulse Resp B/P (MAP) Pulse Ox O2 Delivery O2 Flow Rate FiO2 04/17/18 12:00 86 04/17/18 11:50 97.7 80 18 125/75 98 Room Air 97.7 04/17/18 08:35 82 133/86 04/17/18 08:35 82 133/86 04/17/18 08:00 98.2 82 18 133/86 97 Room Air 98.2 04/17/18 08:00 71 04/17/18 04:00 74 04/17/18 04:00 98.0 73 20 123/71 97 Room Air 98.0 04/17/18 00:00 75 04/17/18 00:00 98.0 70 20 130/81 96 Room Air 98.0 04/16/18 22:13 70 128/63 04/16/18 20:00 98.8 70 20 128/63 97 Room Air 98.8 04/16/18 20:00 83 04/16/18 16:00 97.2 77 20 128/72 96 Room Air 97.2 04/16/18 16:00 73 04/16/18 15:09 80 135/83 Laboratory Tests Test 04/17/18 06:20 04/17/18 13:12 White Blood Count 5.7 K/UL (4.8-10.8) Red Blood Count 3.94 M/UL (4.20-5.40) L Hemoglobin 12.7 G/DL (12.0-16.0) Hematocrit 38.5 % (37.0-47.0) Mean Corpuscular Volume 98 FL (80-99) Mean Corpuscular Hemoglobin 32.1 PG (27.0-31.0) H Mean Corpuscular Hemoglobin Concent 32.9 G/DL (32.0-36.0) Red Cell Distribution Width 13.3 % (11.6-14.8) Platelet Count 180 K/UL (150-450) Mean Platelet Volume 9.6 FL (6.5-10.1) Neutrophils (%) (Auto) 48.6 % (45.0-75.0) Lymphocytes (%) (Auto) 33.7 % (20.0-45.0) Monocytes (%) (Auto) 14.1 % (1.0-10.0) H Eosinophils (%) (Auto) 2.7 % (0.0-3.0) Basophils (%) (Auto) 0.9 % (0.0-2.0) Sodium Level 135 MMOL/L (136-145) L Potassium Level 4.2 MMOL/L (3.5-5.1) Chloride Level 105 MMOL/L (98-107) Carbon Dioxide Level 25 MMOL/L (21-32) Anion Gap 5 mmol/L (5-15) Blood Urea Nitrogen 15 mg/dL (7-18) Creatinine 0.8 MG/DL (0.55-1.30) Estimat Glomerular Filtration Rate > 60 mL/min (>60) Glucose Level 89 MG/DL (74-106) Calcium Level 9.0 MG/DL (8.5-10.1) Total Bilirubin 0.9 MG/DL (0.2-1.0) Aspartate Amino Transf (AST/SGOT) 140 U/L (15-37) H Alanine Aminotransferase (ALT/SGPT) 163 U/L (12-78) H Alkaline Phosphatase 634 U/L (46-116) H Total Protein 8.9 G/DL (6.4-8.2) H Albumin 2.9 G/DL (3.4-5.0) L Globulin 6.0 g/dL Albumin/Globulin Ratio 0.5 (1.0-2.7) L Urine Opiates Screen Pending Urine Barbiturates Screen Pending Phencyclidine (PCP) Screen Pending Urine Amphetamines Screen Pending Urine Benzodiazepines Screen Pending Urine Cocaine Screen Pending Urine Marijuana (THC) Screen Pending Height (Feet): 5 Height (Inches): 4.00 Weight (Pounds): 161 General Appearance: WD/WN, no apparent distress, alert Cardiovascular: normal rate Respiratory/Chest: normal breath sounds, no respiratory distress Abdominal Exam: normal bowel sounds, non tender, soft Extremities: normal range of motion, non-tender Jessika Reyes NP Apr 17, 2018 13:56
--- NOTE | 2018-04-17 14:12 | Diagnostic Imaging Report ---
Indication: Abdominal and chest pain. Hypertension. Elevated liver function tests. UTI Technique: Continuous helical transaxial imaging of the chest, abdomen and pelvis was obtained from the lung bases to the pubic symphysis during intravenous contrast administration. Multiple phases of enhancement obtained. Coronal 2-D reformats were also obtained. Study obtained in a Siemens sensation [address] Automatic Exposure Control was utilized. Total Dose length Product (DLP): [address] Dose Index Volume (CTDIvol): 0.15, 8.11, 64.89, 16.29, 14.25 mGy Comparison: None Findings: There is mild basilar atelectasis. The remainder of the lungs appear clear. The thyroid gland is enlarged diffusely and mildly inhomogeneous. Small nodes are seen in the axilla. Mediastinum and farida appear unremarkable. The aorta shows mural calcification. The liver and spleen appear unremarkable. The kidneys are unremarkable. No abnormalities of the pancreas or gallbladder appreciated. No evidence of bowel obstruction. The appendix is partially seen and appears normal. There is no free fluid. Uterus noted. Urinary bladder is nondistended. There is a small ovarian cyst on the left. IMPRESSION: No acute findings in the chest abdomen or pelvis identified. Minimal basilar atelectasis. Mild atherosclerotic vascular disease Thyromegaly Surgical clips in the area of the gallbladder fossa noted. The reason for this surgery is not known. The gallbladder is still present. Normal appendix. The CT scanner at [facility] is accredited by the [employer] and the scans are performed using dose optimization techniques as appropriate to a performed exam including Automatic Exposure control.
--- NOTE | 2018-04-17 14:23 | Internal Med Progress Note ---
Subjective Date of Service: Apr 17, 2018 Physician Name Bennie East Attending Physician William Smith MD Current Medications Medications (Trade) Dose Ordered Sig/Francie Route PRN Reason Start Time Stop Time Status Last Admin Dose Admin Acetaminophen (Tylenol) 650 mg Q6H PRN ORAL For Headache 04/15/18 19:00 05/15/18 18:59 Acetaminophen (Tylenol) 650 mg Q6H PRN ORAL Temp > 100.5 04/15/18 19:00 05/15/18 18:59 Amlodipine Besylate (Norvasc) 10 mg DAILY ORAL 04/16/18 12:00 05/16/18 11:59 04/17/18 08:35 Aspirin (ASA) 81 mg DAILY ORAL 04/15/18 20:00 05/15/18 19:59 04/17/18 08:35 Carvedilol (Coreg) 3.125 mg EVERY 12 HOURS ORAL 04/15/18 21:00 05/15/18 20:59 04/17/18 08:35 Ceftriaxone Sodium 1 gm/ Dextrose 110 ml @ 220 mls/hr Q24H IVPB 04/16/18 13:00 04/23/18 12:59 04/17/18 13:09 Clonidine HCl (Catapres Tab) 0.1 mg Q4H PRN ORAL SBP > 160 mmHg 04/15/18 19:00 05/15/18 18:59 04/16/18 09:48 Docusate Sodium (Colace) 100 mg TWICE A DAY ORAL 04/16/18 18:00 05/16/18 17:59 04/17/18 08:35 Heparin Sodium (Porcine) (Heparin 5000 units/ml) 5,000 units EVERY 8 HOURS SUBQ 04/15/18 22:00 05/15/18 21:59 Iopamidol (Isovue-300 100ml) 100 ml NOW PRN INJ Radiology Procedure 04/16/18 12:00 04/18/18 11:59 Levothyroxine Sodium (Synthroid) 100 mcg DAILY@0630 ORAL 04/17/18 06:30 05/17/18 06:29 04/17/18 05:58 Ondansetron HCl (Zofran) 4 mg Q4H PRN IVP Nausea & Vomiting 04/15/18 19:00 05/15/18 18:59 Polyethylene Glycol (Miralax) 17 gm BEDTIME ORAL 04/16/18 21:00 05/16/18 20:59 04/16/18 22:11 Allergies: Coded Allergies: No Known Allergies (Unverified , 04/15/18) ROS Limited/Unobtainable: No Constitutional: Reports: no symptoms HEENT: Reports: no symptoms Cardiovascular: Reports: no symptoms Respiratory: Reports: no symptoms Gastrointestinal/Abdominal: Reports: no symptoms Genitourinary: Reports: no symptoms Neurologic/Psychiatric: Reports: no symptoms Subjective 68 YO F admitted with ataxia. Now UTI and elevated liver function tests. Cover for Int Dedrick-Dr Smith Objective Last Vital Signs Date Time Temp Pulse Resp B/P (MAP) Pulse Ox O2 Delivery O2 Flow Rate FiO2 04/17/18 12:00 86 04/17/18 11:50 97.7 18 125/75 98 Room Air 97.7 General Appearance: WD/WN, no apparent distress, alert EENT: PERRL/EOMI, normal ENT inspection Neck: non-tender, normal alignment, supple, normal inspection Cardiovascular: normal peripheral pulses, normal rate, regular rhythm, no gallop/murmur, no JVD Respiratory/Chest: chest wall non-tender, lungs clear, normal breath sounds, no respiratory distress, no accessory muscle use Abdomen: normal bowel sounds, non tender, soft, no organomegaly, no mass Extremities: normal range of motion, non-tender Neurologic: damage assessor II-XII grossly normal, no motor/sensory deficits Skin: normal pigmentation, warm/dry Laboratory Tests Test 04/17/18 06:20 04/17/18 13:12 White Blood Count 5.7 K/UL (4.8-10.8) Red Blood Count 3.94 M/UL (4.20-5.40) L Hemoglobin 12.7 G/DL (12.0-16.0) Hematocrit 38.5 % (37.0-47.0) Mean Corpuscular Volume 98 FL (80-99) Mean Corpuscular Hemoglobin 32.1 PG (27.0-31.0) H Mean Corpuscular Hemoglobin Concent 32.9 G/DL (32.0-36.0) Red Cell Distribution Width 13.3 % (11.6-14.8) Platelet Count 180 K/UL (150-450) Mean Platelet Volume 9.6 FL (6.5-10.1) Neutrophils (%) (Auto) 48.6 % (45.0-75.0) Lymphocytes (%) (Auto) 33.7 % (20.0-45.0) Monocytes (%) (Auto) 14.1 % (1.0-10.0) H Eosinophils (%) (Auto) 2.7 % (0.0-3.0) Basophils (%) (Auto) 0.9 % (0.0-2.0) Sodium Level 135 MMOL/L (136-145) L Potassium Level 4.2 MMOL/L (3.5-5.1) Chloride Level 105 MMOL/L (98-107) Carbon Dioxide Level 25 MMOL/L (21-32) Anion Gap 5 mmol/L (5-15) Blood Urea Nitrogen 15 mg/dL (7-18) Creatinine 0.8 MG/DL (0.55-1.30) Estimat Glomerular Filtration Rate > 60 mL/min (>60) Glucose Level 89 MG/DL (74-106) Calcium Level 9.0 MG/DL (8.5-10.1) Total Bilirubin 0.9 MG/DL (0.2-1.0) Aspartate Amino Transf (AST/SGOT) 140 U/L (15-37) H Alanine Aminotransferase (ALT/SGPT) 163 U/L (12-78) H Alkaline Phosphatase 634 U/L (46-116) H Total Protein 8.9 G/DL (6.4-8.2) H Albumin 2.9 G/DL (3.4-5.0) L Globulin 6.0 g/dL Albumin/Globulin Ratio 0.5 (1.0-2.7) L Urine Opiates Screen Negative (NEGATIVE) Urine Barbiturates Screen Negative (NEGATIVE) Phencyclidine (PCP) Screen Negative (NEGATIVE) Urine Amphetamines Screen Negative (NEGATIVE) Urine Benzodiazepines Screen Negative (NEGATIVE) Urine Cocaine Screen Negative (NEGATIVE) Urine Marijuana (THC) Screen Negative (NEGATIVE) Microbiology Date/Time Source Procedure Growth Status 04/15/18 13:20 Urine,Clean Catch Urine Culture - Preliminary Strep Agalactiae Group B Resulted Assessment/Plan Problem List: (1) Ataxia (2) UTI (urinary tract infection) Assessment & Plan: Group B strep. Continue ceftriaxone (3) Hypothyroid Assessment & Plan: See endocrinology note. Continue synthroid. (4) HTN (hypertension) Assessment & Plan: Continue amlodipine (5) Abnormal LFTs Assessment & Plan: See GI note. Status: progressing Bennie East MD Apr 17, 2018 14:23
--- NOTE | 2018-04-17 14:43 | Cardiology Progress Note ---
Assessment/Plan Status: stable Assessment/Plan Hypertension Hypothyroid Elevated LFT Dizziness/ataxia 1) Echocardiogram reviewed- normal LV function, abnormal relaxation, no significant valvular disease 2) Outpatient stress test for risk stratification 3) Endo consult for hypothyroid 4) BP controlled: Norvasc and coreg 5) Low salt diet 6) Aspirin 7) CT scan reviewed, no pathology Subjective Cardiovascular: Reports: no symptoms Respiratory: Reports: no symptoms Gastrointestinal/Abdominal: Reports: no symptoms Genitourinary: Reports: no symptoms Subjective Patient had CT scan today, no pathology. No acute events, vitals stable. Objective Last 24 Hour Vital Signs Date Time Temp Pulse Resp B/P (MAP) Pulse Ox O2 Delivery O2 Flow Rate FiO2 04/17/18 12:00 86 04/17/18 11:50 97.7 80 18 125/75 98 Room Air 97.7 04/17/18 08:35 82 133/86 04/17/18 08:35 82 133/86 04/17/18 08:00 98.2 82 18 133/86 97 Room Air 98.2 04/17/18 08:00 71 04/17/18 04:00 74 04/17/18 04:00 98.0 73 20 123/71 97 Room Air 98.0 04/17/18 00:00 75 04/17/18 00:00 98.0 70 20 130/81 96 Room Air 98.0 04/16/18 22:13 70 128/63 04/16/18 20:00 98.8 70 20 128/63 97 Room Air 98.8 04/16/18 20:00 83 04/16/18 16:00 97.2 77 20 128/72 96 Room Air 97.2 04/16/18 16:00 73 04/16/18 15:09 80 135/83 General Appearance: no apparent distress EENT: PERRL/EOMI Neck: non-tender, abnormal alignment Cardiovascular: normal rate, regular rhythm Respiratory/Chest: chest wall non-tender Abdomen: non tender Extremities: normal range of motion Neurologic: prep cook II-XII grossly normal Laboratory Tests Test 04/17/18 06:20 04/17/18 13:12 White Blood Count 5.7 K/UL (4.8-10.8) Red Blood Count 3.94 M/UL (4.20-5.40) L Hemoglobin 12.7 G/DL (12.0-16.0) Hematocrit 38.5 % (37.0-47.0) Mean Corpuscular Volume 98 FL (80-99) Mean Corpuscular Hemoglobin 32.1 PG (27.0-31.0) H Mean Corpuscular Hemoglobin Concent 32.9 G/DL (32.0-36.0) Red Cell Distribution Width 13.3 % (11.6-14.8) Platelet Count 180 K/UL (150-450) Mean Platelet Volume 9.6 FL (6.5-10.1) Neutrophils (%) (Auto) 48.6 % (45.0-75.0) Lymphocytes (%) (Auto) 33.7 % (20.0-45.0) Monocytes (%) (Auto) 14.1 % (1.0-10.0) H Eosinophils (%) (Auto) 2.7 % (0.0-3.0) Basophils (%) (Auto) 0.9 % (0.0-2.0) Sodium Level 135 MMOL/L (136-145) L Potassium Level 4.2 MMOL/L (3.5-5.1) Chloride Level 105 MMOL/L (98-107) Carbon Dioxide Level 25 MMOL/L (21-32) Anion Gap 5 mmol/L (5-15) Blood Urea Nitrogen 15 mg/dL (7-18) Creatinine 0.8 MG/DL (0.55-1.30) Estimat Glomerular Filtration Rate > 60 mL/min (>60) Glucose Level 89 MG/DL (74-106) Calcium Level 9.0 MG/DL (8.5-10.1) Total Bilirubin 0.9 MG/DL (0.2-1.0) Aspartate Amino Transf (AST/SGOT) 140 U/L (15-37) H Alanine Aminotransferase (ALT/SGPT) 163 U/L (12-78) H Alkaline Phosphatase 634 U/L (46-116) H Total Protein 8.9 G/DL (6.4-8.2) H Albumin 2.9 G/DL (3.4-5.0) L Globulin 6.0 g/dL Albumin/Globulin Ratio 0.5 (1.0-2.7) L Urine Opiates Screen Negative (NEGATIVE) Urine Barbiturates Screen Negative (NEGATIVE) Phencyclidine (PCP) Screen Negative (NEGATIVE) Urine Amphetamines Screen Negative (NEGATIVE) Urine Benzodiazepines Screen Negative (NEGATIVE) Urine Cocaine Screen Negative (NEGATIVE) Urine Marijuana (THC) Screen Negative (NEGATIVE) Microbiology Date/Time Source Procedure Growth Status 04/15/18 13:20 Urine,Clean Catch Urine Culture - Preliminary Strep Agalactiae Group B Resulted Braden Diaz M.D. Apr 17, 2018 14:43
--- NOTE | 2018-04-17 15:21 | Diagnostic Imaging Report ---
Indication:Abdominal pain Technique: Grayscale and duplex Doppler imaging of the abdomen performed. Comparison: None Findings: The liver, demonstrated part of the pancreas, gallbladder, aorta and IVC, both kidneys, spleen appear unremarkable. There is no biliary ductal dilatation identified. Doppler evaluation of the main portal vein shows patency. There is no ascites. No hydronephrosis seen. CBD is 6 mm. Impression: No acute findings.
[2018-04-17 15:39] VITALS: BP 149/81
--- NOTE | 2018-04-17 16:29 | General Progress Note ---
Assessment/Plan Status: stable Assessment/Plan MDD due to [facility] Anxiety the pt was restarted on thyroid meds provided ro/st Subjective Date patient seen: Apr 17, 2018 Neurologic/Psychiatric: Reports: anxiety, depressed, emotional problems Allergies: Coded Allergies: No Known Allergies (Unverified , 04/15/18) Objective Last 24 Hour Vital Signs Date Time Temp Pulse Resp B/P (MAP) Pulse Ox O2 Delivery O2 Flow Rate FiO2 04/17/18 15:39 97.8 95 18 149/81 97 Room Air 97.8 04/17/18 12:00 86 04/17/18 11:50 97.7 80 18 125/75 98 Room Air 97.7 04/17/18 08:35 82 133/86 04/17/18 08:35 82 133/86 04/17/18 08:00 98.2 82 18 133/86 97 Room Air 98.2 04/17/18 08:00 71 04/17/18 04:00 74 04/17/18 04:00 98.0 73 20 123/71 97 Room Air 98.0 04/17/18 00:00 75 04/17/18 00:00 98.0 70 20 130/81 96 Room Air 98.0 04/16/18 22:13 70 128/63 04/16/18 20:00 98.8 70 20 128/63 97 Room Air 98.8 04/16/18 20:00 83 Laboratory Tests 04/17/18 06:20: White Blood Count 5.7, Red Blood Count 3.94L, Hemoglobin 12.7, Hematocrit 38.5, Mean Corpuscular Volume 98, Mean Corpuscular Hemoglobin 32.1H, Mean Corpuscular Hemoglobin Concent 32.9, Red Cell Distribution Width 13.3, Platelet Count 180, Mean Platelet Volume 9.6, Neutrophils (%) (Auto) 48.6, Lymphocytes (%) (Auto) 33.7, Monocytes (%) (Auto) 14.1H, Eosinophils (%) (Auto) 2.7, Basophils (%) ( Auto) 0.9, Sodium Level 135L, Potassium Level 4.2, Chloride Level 105, Carbon Dioxide Level 25, Anion Gap 5, Blood Urea Nitrogen 15, Creatinine 0.8, Estimat Glomerular Filtration Rate > 60, Glucose Level 89, Calcium Level 9.0, Total Bilirubin 0.9, Aspartate Amino Transf (AST/SGOT) 140H, Alanine Aminotransferase (ALT/SGPT) 163H, Alkaline Phosphatase 634H, Total Protein 8.9H, Albumin 2.9L, Globulin 6.0, Albumin/Globulin Ratio 0.5L 04/17/18 13:12: Urine Opiates Screen Negative, Urine Barbiturates Screen Negative, Phencyclidine (PCP) Screen Negative, Urine Amphetamines Screen Negative, Urine Benzodiazepines Screen Negative, Urine Cocaine Screen Negative, Urine Marijuana (THC) Screen Negative Height (Feet): 5 Height (Inches): 4.00 Weight (Pounds): 161 General Appearance: no apparent distress, alert Neurologic: oriented x 3, responsive, depressed affect Erasmo Newton MD Apr 17, 2018 16:29
[2018-04-17 20:00] VITALS: BP 153/90
[2018-04-17] MEDS: Miralax 17gm pkt ORAL SCH (21:00)
[2018-04-17] MEDS ORDERED: Tubing IV Secondary IV ONE (21:13)
[2018-04-17] MEDS ORDERED: NS 500ML ONE (21:13)
--- NOTE | 2018-04-18 00:38 | Cardiology Report ---
APPROVED REPORT EKG Measurement Heart [id number] Normal sinus rhythm Normal ECG
[2018-04-18 04:00] VITALS: BP 115/74
[2018-04-18] MEDS: Heparin 5000 units/ml inj SUBQ SCH ×2 (06:00→13:52)
[2018-04-18 07:57] LABS: BASOPHILS % (AUTO) 0.7 % (0.0-2.0); EOSINOPHILS % (AUTO) 2.2 % (0.0-3.0); HEMATOCRIT 36.1 % (37.0-47.0); HEMOGLOBIN 11.9 G/DL (12.0-16.0); LYMPHOCYTES % (AUTO) 30.5 % (20.0-45.0); MEAN CORPUSCULAR VOLUME 97 FL (80-99); MONOCYTES % (AUTO) 16.9 % (1.0-10.0); NEUTROPHILS % (AUTO) 49.7 % (45.0-75.0); PLATELET COUNT 165 K/UL (150-450); RED BLOOD COUNT 3.71 M/UL (4.20-5.40); RED CELL DISTRIBUTION WIDTH 13.2 % (11.6-14.8); WHITE BLOOD COUNT 5.4 K/UL (4.8-10.8)
[2018-04-18 08:00] VITALS: BP 118/79
[2018-04-18 08:13] LABS: ALANINE AMINOTRANSFERASE 152 U/L (12-78); ALBUMIN 2.7 G/DL (3.4-5.0); ALBUMIN/GLOBULIN RATIO 0.5 (1.0-2.7); ALKALINE PHOSPHATASE 614 U/L (46-116); ANION GAP 6 mmol/L (5-15); ASPARTATE AMINO TRANSFERASE 127 U/L (15-37); BILIRUBIN,TOTAL 0.7 MG/DL (0.2-1.0); BLOOD UREA NITROGEN 16 mg/dL (7-18); CALCIUM 8.8 MG/DL (8.5-10.1); CARBON DIOXIDE 26 MMOL/L (21-32); CHLORIDE 105 MMOL/L (98-107); CREATININE 0.8 MG/DL (0.55-1.30); SODIUM 137 MMOL/L (136-145)
[2018-04-18] MEDS: Docusate 100mg cap ORAL SCH (08:39)
[2018-04-18] MEDS: Aspirin Baby 81mg ORAL SCH (08:39)
--- NOTE | 2018-04-18 10:09 | General Progress Note ---
Assessment/Plan Problem List: (1) Goiter ICD Codes: E04.9 - Nontoxic goiter, unspecified SNOMED: 1356610 (2) Hypothyroid ICD Codes: E03.9 - Hypothyroidism, unspecified SNOMED: 42082029 Qualifiers: (3) Hypertensive urgency ICD Codes: I16.0 - Hypertensive urgency SNOMED: 927235544 Assessment/Plan thyroid US ordered - not done yet continue Synthroid 100 mcg daily repeat TSH in 4-6 weeks Subjective Allergies: Coded Allergies: No Known Allergies (Unverified , 04/17/18) All Systems: reviewed and negative except above Subjective events noted Objective Last 24 Hour Vital Signs Date Time Temp Pulse Resp B/P (MAP) Pulse Ox O2 Delivery O2 Flow Rate FiO2 04/18/18 08:39 80 118/79 04/18/18 08:39 80 118/79 04/18/18 08:00 83 04/18/18 08:00 98.2 80 18 118/79 98 Room Air 98.2 04/18/18 04:00 71 04/18/18 04:00 97.7 72 18 115/74 95 Room Air 97.7 04/18/18 00:00 77 04/17/18 22:06 86 153/90 04/17/18 20:00 87 04/17/18 20:00 97.8 86 18 153/90 97 Room Air 97.8 04/17/18 16:00 94 04/17/18 15:39 97.8 95 18 149/81 97 Room Air 97.8 04/17/18 12:00 86 04/17/18 11:50 97.7 80 18 125/75 98 Room Air 97.7 Intake and Output 04/17/18 04/18/18 19:00 07:00 Intake Total 350 ml Balance 350 ml Intake Oral 240 ml IV Total 110 ml # Voids 4 2 # Bowel Movements 1 Laboratory Tests 04/17/18 13:12: Urine Opiates Screen Negative, Urine Barbiturates Screen Negative, Phencyclidine (PCP) Screen Negative, Urine Amphetamines Screen Negative, Urine Benzodiazepines Screen Negative, Urine Cocaine Screen Negative, Urine Marijuana (THC) Screen Negative 04/18/18 05:52: White Blood Count 5.4, Red Blood Count 3.71L, Hemoglobin 11.9L, Hematocrit 36.1L , Mean Corpuscular Volume 97, Mean Corpuscular Hemoglobin 32.1H, Mean Corpuscular Hemoglobin Concent 33.0, Red Cell Distribution Width 13.2, Platelet Count 165, Mean Platelet Volume 9.1, Neutrophils (%) (Auto) 49.7, Lymphocytes (% ) (Auto) 30.5, Monocytes (%) (Auto) 16.9H, Eosinophils (%) (Auto) 2.2, Basophils (%) (Auto) 0.7, Sodium Level 137, Potassium Level 4.0, Chloride Level 105, Carbon Dioxide Level 26, Anion Gap 6, Blood Urea Nitrogen 16, Creatinine 0.8, Estimat Glomerular Filtration Rate > 60, Glucose Level 83, Calcium Level 8.8, Total Bilirubin 0.7, Aspartate Amino Transf (AST/SGOT) 127H, Alanine Aminotransferase (ALT/SGPT) 152H, Alkaline Phosphatase 614H, Total Protein 8.4H , Total Protein (PEP) [Pending], Albumin 2.7L, Albumin (PEP) [Pending], Globulin 5.7, Globulin (PEP) [Pending], Albumin/Globulin Ratio [Pending], Alpha- 1-Globulins [Pending], [id number] [Pending], Beta Globulins [Pending], Beta Gamma Globulin [Pending], PEP Abnormal Protein Bands [Pending], Protein Electrophoresis Interpret [Pending] Height (Feet): 5 Height (Inches): 4.00 Weight (Pounds): 160 General Appearance: no apparent distress Neck: normal alignment Cardiovascular: normal rate Respiratory/Chest: lungs clear Abdomen: normal bowel sounds Objective Current Medications Medications (Trade) Dose Ordered Sig/Francie Route PRN Reason Start Time Stop Time Status Last Admin Dose Admin Acetaminophen (Tylenol) 650 mg Q6H PRN ORAL For Headache 04/15/18 19:00 05/15/18 18:59 Acetaminophen (Tylenol) 650 mg Q6H PRN ORAL Temp > 100.5 04/15/18 19:00 05/15/18 18:59 Amlodipine Besylate (Norvasc) 10 mg DAILY ORAL 04/16/18 12:00 05/16/18 11:59 04/18/18 08:39 Aspirin (ASA) 81 mg DAILY ORAL 04/15/18 20:00 05/15/18 19:59 04/18/18 08:39 Carvedilol (Coreg) 3.125 mg EVERY 12 HOURS ORAL 04/15/18 21:00 05/15/18 20:59 04/18/18 08:39 Ceftriaxone Sodium 1 gm/ Dextrose 110 ml @ 220 mls/hr Q24H IVPB 04/16/18 13:00 04/23/18 12:59 04/17/18 13:09 Clonidine HCl (Catapres Tab) 0.1 mg Q4H PRN ORAL SBP > 160 mmHg 04/15/18 19:00 05/15/18 18:59 04/16/18 09:48 Docusate Sodium (Colace) 100 mg TWICE A DAY ORAL 04/16/18 18:00 05/16/18 17:59 04/18/18 08:39 Heparin Sodium (Porcine) (Heparin 5000 units/ml) 5,000 units EVERY 8 HOURS SUBQ 04/15/18 22:00 05/15/18 21:59 Iopamidol (Isovue-300 100ml) 100 ml NOW PRN INJ Radiology Procedure 04/16/18 12:00 04/18/18 11:59 Levothyroxine Sodium (Synthroid) 100 mcg DAILY@0630 ORAL 04/17/18 06:30 05/17/18 06:29 04/18/18 06:13 Ondansetron HCl (Zofran) 4 mg Q4H PRN IVP Nausea & Vomiting 04/15/18 19:00 05/15/18 18:59 Polyethylene Glycol (Miralax) 17 gm BEDTIME ORAL 04/16/18 21:00 05/16/18 20:59 04/16/18 22:11 Deshawn Martel MD Apr 18, 2018 10:09
[2018-04-18 11:35] VITALS: BP 122/79
--- NOTE | 2018-04-18 11:38 | Pulmonology Progress Note ---
Assessment/Plan Problems: (1) Hypertensive urgency (2) UTI (urinary tract infection) (3) Hypothyroidism (4) Goiter Assessment/Plan all reviewed getting better US of goiter continue abx for uti BP better dc home prescription given Subjective ROS Limited/Unobtainable: No Constitutional: Reports: no symptoms HEENT: Repors: no symptoms Allergies: Coded Allergies: No Known Allergies (Unverified , 04/17/18) Objective Last 24 Hour Vital Signs Date Time Temp Pulse Resp B/P (MAP) Pulse Ox O2 Delivery O2 Flow Rate FiO2 04/18/18 11:35 97.9 79 18 122/79 100 Room Air 97.9 04/18/18 08:39 80 118/79 04/18/18 08:39 80 118/79 04/18/18 08:00 83 04/18/18 08:00 98.2 80 18 118/79 98 Room Air 98.2 04/18/18 04:00 71 04/18/18 04:00 97.7 72 18 115/74 95 Room Air 97.7 04/18/18 00:00 77 04/17/18 22:06 86 153/90 04/17/18 20:00 87 04/17/18 20:00 97.8 86 18 153/90 97 Room Air 97.8 04/17/18 16:00 94 04/17/18 15:39 97.8 95 18 149/81 97 Room Air 97.8 04/17/18 12:00 86 04/17/18 11:50 97.7 80 18 125/75 98 Room Air 97.7 Intake and Output 04/17/18 04/18/18 19:00 07:00 Intake Total 350 ml Balance 350 ml Intake Oral 240 ml IV Total 110 ml # Voids 4 2 # Bowel Movements 1 General Appearance: WD/WN HEENT: normocephalic, atraumatic Respiratory/Chest: chest wall non-tender, lungs clear Breasts: no masses Cardiovascular: normal peripheral pulses Abdomen: normal bowel sounds, soft, non tender Genitourinary: normal external genitalia Extremities: no clubbing Skin: no rash Neurologic/Psychiatric: tearer press clipping II-XII grossly normal Microbiology Date/Time Source Procedure Growth Status 04/15/18 13:20 Urine,Clean Catch Urine Culture - Final Strep Agalactiae Group B Complete Laboratory Tests 04/17/18 13:12: Urine Opiates Screen Negative, Urine Barbiturates Screen Negative, Phencyclidine (PCP) Screen Negative, Urine Amphetamines Screen Negative, Urine Benzodiazepines Screen Negative, Urine Cocaine Screen Negative, Urine Marijuana (THC) Screen Negative 04/18/18 05:52: White Blood Count 5.4, Red Blood Count 3.71L, Hemoglobin 11.9L, Hematocrit 36.1L , Mean Corpuscular Volume 97, Mean Corpuscular Hemoglobin 32.1H, Mean Corpuscular Hemoglobin Concent 33.0, Red Cell Distribution Width 13.2, Platelet Count 165, Mean Platelet Volume 9.1, Neutrophils (%) (Auto) 49.7, Lymphocytes (% ) (Auto) 30.5, Monocytes (%) (Auto) 16.9H, Eosinophils (%) (Auto) 2.2, Basophils (%) (Auto) 0.7, Sodium Level 137, Potassium Level 4.0, Chloride Level 105, Carbon Dioxide Level 26, Anion Gap 6, Blood Urea Nitrogen 16, Creatinine 0.8, Estimat Glomerular Filtration Rate > 60, Glucose Level 83, Calcium Level 8.8, Total Bilirubin 0.7, Aspartate Amino Transf (AST/SGOT) 127H, Alanine Aminotransferase (ALT/SGPT) 152H, Alkaline Phosphatase 614H, Total Protein 8.4H , Total Protein (PEP) [Pending], Albumin 2.7L, Albumin (PEP) [Pending], Globulin 5.7, Globulin (PEP) [Pending], Albumin/Globulin Ratio [Pending], Alpha- 1-Globulins [Pending], [id number] [Pending], Beta Globulins [Pending], Beta Gamma Globulin [Pending], PEP Abnormal Protein Bands [Pending], Protein Electrophoresis Interpret [Pending] Current Medications Medications (Trade) Dose Ordered Sig/Francie Route PRN Reason Start Time Stop Time Status Last Admin Dose Admin Acetaminophen (Tylenol) 650 mg Q6H PRN ORAL For Headache 04/15/18 19:00 05/15/18 18:59 Acetaminophen (Tylenol) 650 mg Q6H PRN ORAL Temp > 100.5 04/15/18 19:00 05/15/18 18:59 Amlodipine Besylate (Norvasc) 10 mg DAILY ORAL 04/16/18 12:00 05/16/18 11:59 04/18/18 08:39 Aspirin (ASA) 81 mg DAILY ORAL 04/15/18 20:00 05/15/18 19:59 04/18/18 08:39 Carvedilol (Coreg) 3.125 mg EVERY 12 HOURS ORAL 04/15/18 21:00 05/15/18 20:59 04/18/18 08:39 Ceftriaxone Sodium 1 gm/ Dextrose 110 ml @ 220 mls/hr Q24H IVPB 04/16/18 13:00 04/23/18 12:59 04/17/18 13:09 Clonidine HCl (Catapres Tab) 0.1 mg Q4H PRN ORAL SBP > 160 mmHg 04/15/18 19:00 05/15/18 18:59 04/16/18 09:48 Docusate Sodium (Colace) 100 mg TWICE A DAY ORAL 04/16/18 18:00 05/16/18 17:59 04/18/18 08:39 Heparin Sodium (Porcine) (Heparin 5000 units/ml) 5,000 units EVERY 8 HOURS SUBQ 04/15/18 22:00 05/15/18 21:59 Iopamidol (Isovue-300 100ml) 100 ml NOW PRN INJ Radiology Procedure 04/16/18 12:00 04/18/18 11:59 Levothyroxine Sodium (Synthroid) 100 mcg DAILY@0630 ORAL 04/17/18 06:30 05/17/18 06:29 04/18/18 06:13 Ondansetron HCl (Zofran) 4 mg Q4H PRN IVP Nausea & Vomiting 04/15/18 19:00 05/15/18 18:59 Polyethylene Glycol (Miralax) 17 gm BEDTIME ORAL 04/16/18 21:00 05/16/18 20:59 04/16/18 22:11 Grupo Kruger MD Apr 18, 2018 11:38
--- NOTE | 2018-04-18 11:39 | Internal Med Progress Note ---
Subjective Date of Service: Apr 18, 2018 Physician Name Bennie East Attending Physician William Smith MD Current Medications Medications (Trade) Dose Ordered Sig/Francie Route PRN Reason Start Time Stop Time Status Last Admin Dose Admin Acetaminophen (Tylenol) 650 mg Q6H PRN ORAL For Headache 04/15/18 19:00 05/15/18 18:59 Acetaminophen (Tylenol) 650 mg Q6H PRN ORAL Temp > 100.5 04/15/18 19:00 05/15/18 18:59 Amlodipine Besylate (Norvasc) 10 mg DAILY ORAL 04/16/18 12:00 05/16/18 11:59 04/18/18 08:39 Aspirin (ASA) 81 mg DAILY ORAL 04/15/18 20:00 05/15/18 19:59 04/18/18 08:39 Carvedilol (Coreg) 3.125 mg EVERY 12 HOURS ORAL 04/15/18 21:00 05/15/18 20:59 04/18/18 08:39 Ceftriaxone Sodium 1 gm/ Dextrose 110 ml @ 220 mls/hr Q24H IVPB 04/16/18 13:00 04/23/18 12:59 04/17/18 13:09 Clonidine HCl (Catapres Tab) 0.1 mg Q4H PRN ORAL SBP > 160 mmHg 04/15/18 19:00 05/15/18 18:59 04/16/18 09:48 Docusate Sodium (Colace) 100 mg TWICE A DAY ORAL 04/16/18 18:00 05/16/18 17:59 04/18/18 08:39 Heparin Sodium (Porcine) (Heparin 5000 units/ml) 5,000 units EVERY 8 HOURS SUBQ 04/15/18 22:00 05/15/18 21:59 Iopamidol (Isovue-300 100ml) 100 ml NOW PRN INJ Radiology Procedure 04/16/18 12:00 04/18/18 11:59 Levothyroxine Sodium (Synthroid) 100 mcg DAILY@0630 ORAL 04/17/18 06:30 05/17/18 06:29 04/18/18 06:13 Ondansetron HCl (Zofran) 4 mg Q4H PRN IVP Nausea & Vomiting 04/15/18 19:00 05/15/18 18:59 Polyethylene Glycol (Miralax) 17 gm BEDTIME ORAL 04/16/18 21:00 05/16/18 20:59 04/16/18 22:11 Allergies: Coded Allergies: No Known Allergies (Unverified , 04/17/18) ROS Limited/Unobtainable: No Constitutional: Reports: no symptoms HEENT: Reports: no symptoms Cardiovascular: Reports: no symptoms Respiratory: Reports: no symptoms Gastrointestinal/Abdominal: Reports: no symptoms Genitourinary: Reports: no symptoms Neurologic/Psychiatric: Reports: no symptoms Subjective 68 YO F admitted with ataxia. Now UTI and elevated liver function tests. Cover for Int Med-Dr Smith. Patient wants to leave as today is April 18. Objective Last Vital Signs Date Time Temp Pulse Resp B/P (MAP) Pulse Ox O2 Delivery O2 Flow Rate FiO2 04/18/18 11:35 97.9 79 18 122/79 100 Room Air 97.9 Laboratory Tests Test 04/17/18 13:12 04/18/18 05:52 Urine Opiates Screen Negative (NEGATIVE) Urine Barbiturates Screen Negative (NEGATIVE) Phencyclidine (PCP) Screen Negative (NEGATIVE) Urine Amphetamines Screen Negative (NEGATIVE) Urine Benzodiazepines Screen Negative (NEGATIVE) Urine Cocaine Screen Negative (NEGATIVE) Urine Marijuana (THC) Screen Negative (NEGATIVE) White Blood Count 5.4 K/UL (4.8-10.8) Red Blood Count 3.71 M/UL (4.20-5.40) L Hemoglobin 11.9 G/DL (12.0-16.0) L Hematocrit 36.1 % (37.0-47.0) L Mean Corpuscular Volume 97 FL (80-99) Mean Corpuscular Hemoglobin 32.1 PG (27.0-31.0) H Mean Corpuscular Hemoglobin Concent 33.0 G/DL (32.0-36.0) Red Cell Distribution Width 13.2 % (11.6-14.8) Platelet Count 165 K/UL (150-450) Mean Platelet Volume 9.1 FL (6.5-10.1) Neutrophils (%) (Auto) 49.7 % (45.0-75.0) Lymphocytes (%) (Auto) 30.5 % (20.0-45.0) Monocytes (%) (Auto) 16.9 % (1.0-10.0) H Eosinophils (%) (Auto) 2.2 % (0.0-3.0) Basophils (%) (Auto) 0.7 % (0.0-2.0) Sodium Level 137 MMOL/L (136-145) Potassium Level 4.0 MMOL/L (3.5-5.1) Chloride Level 105 MMOL/L (98-107) Carbon Dioxide Level 26 MMOL/L (21-32) Anion Gap 6 mmol/L (5-15) Blood Urea Nitrogen 16 mg/dL (7-18) Creatinine 0.8 MG/DL (0.55-1.30) Estimat Glomerular Filtration Rate > 60 mL/min (>60) Glucose Level 83 MG/DL (74-106) Calcium Level 8.8 MG/DL (8.5-10.1) Total Bilirubin 0.7 MG/DL (0.2-1.0) Aspartate Amino Transf (AST/SGOT) 127 U/L (15-37) H Alanine Aminotransferase (ALT/SGPT) 152 U/L (12-78) H Alkaline Phosphatase 614 U/L (46-116) H Total Protein 8.4 G/DL (6.4-8.2) H Total Protein (PEP) Pending Albumin 2.7 G/DL (3.4-5.0) L Albumin (PEP) Pending Globulin 5.7 g/dL Globulin (PEP) Pending Albumin/Globulin Ratio Pending Jayht-7-Hyziqhqka Pending Vapuq-0-Xbborpuno Pending Beta Globulins Pending Beta Gamma Globulin Pending PEP Abnormal Protein Bands Pending Protein Electrophoresis Interpret Pending Microbiology Date/Time Source Procedure Growth Status 04/15/18 13:20 Urine,Clean Catch Urine Culture - Final Strep Agalactiae Group B Complete Intake and Output 04/17/18 04/18/18 19:00 07:00 Intake Total 350 ml Balance 350 ml Intake Oral 240 ml IV Total 110 ml # Voids 4 2 # Bowel Movements 1 Objective General Appearance: WD/WN, no apparent distress, alert EENT: PERRL/EOMI, normal ENT inspection Neck: non-tender, normal alignment, supple, normal inspection Cardiovascular: normal peripheral pulses, normal rate, regular rhythm, no gallop/murmur, no JVD Respiratory/Chest: chest wall non-tender, lungs clear, normal breath sounds, no respiratory distress, no accessory muscle use Abdomen: normal bowel sounds, non tender, soft, no organomegaly, no mass Extremities: normal range of motion, non-tender 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 Continue ceftriaxone (3) Hypothyroid Assessment & Plan: See endocrinology note. Continue synthroid. (4) HTN (hypertension) Assessment & Plan: Continue amlodipine (5) Abnormal LFTs Assessment & Plan: See GI note. Assessment/Plan D/C home today. F/U Dr Smith in 1 week Bennie East MD Apr 18, 2018 11:39
[2018-04-18] MEDS ORDERED: ASPIRIN81 MG ORAL (11:42)
[2018-04-18] MEDS ORDERED: NORVASC10 MG ORAL (11:42)
[2018-04-18] MEDS ORDERED: SYNTHROID100 MCG ORAL (11:42)
--- NOTE | 2018-04-18 12:40 | Cardiology Progress Note ---
Assessment/Plan Status: stable Assessment/Plan Hypertension Hypothyroid Elevated LFT Dizziness/ataxia 1) Echocardiogram reviewed- normal LV function, abnormal relaxation, no significant valvular disease 2) Outpatient stress test for risk stratification 3) Endo consult for hypothyroid 4) BP controlled: Norvasc and coreg 5) Low salt diet 6) Aspirin 7) CT scan reviewed, no pathology Discharge home today Subjective Cardiovascular: Reports: no symptoms Respiratory: Reports: no symptoms Gastrointestinal/Abdominal: Reports: no symptoms Genitourinary: Reports: no symptoms Subjective No acute events, vitals stable, patient wants to go home Objective Last 24 Hour Vital Signs Date Time Temp Pulse Resp B/P (MAP) Pulse Ox O2 Delivery O2 Flow Rate FiO2 04/18/18 11:35 97.9 79 18 122/79 100 Room Air 97.9 04/18/18 08:39 80 118/79 04/18/18 08:39 80 118/79 04/18/18 08:00 83 04/18/18 08:00 98.2 80 18 118/79 98 Room Air 98.2 04/18/18 04:00 71 04/18/18 04:00 97.7 72 18 115/74 95 Room Air 97.7 04/18/18 00:00 77 04/17/18 22:06 86 153/90 04/17/18 20:00 87 04/17/18 20:00 97.8 86 18 153/90 97 Room Air 97.8 04/17/18 16:00 94 04/17/18 15:39 97.8 95 18 149/81 97 Room Air 97.8 General Appearance: no apparent distress EENT: PERRL/EOMI Neck: non-tender Rhythm: NSR Cardiovascular: normal peripheral pulses Respiratory/Chest: chest wall non-tender Abdomen: normal bowel sounds, non tender, soft Extremities: normal range of motion 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 Intake and Output 04/17/18 04/18/18 19:00 07:00 Intake Total 350 ml Balance 350 ml Intake Oral 240 ml IV Total 110 ml # Voids 4 2 # Bowel Movements 1 Laboratory Tests Test 04/17/18 13:12 04/18/18 05:52 Urine Opiates Screen Negative (NEGATIVE) Urine Barbiturates Screen Negative (NEGATIVE) Phencyclidine (PCP) Screen Negative (NEGATIVE) Urine Amphetamines Screen Negative (NEGATIVE) Urine Benzodiazepines Screen Negative (NEGATIVE) Urine Cocaine Screen Negative (NEGATIVE) Urine Marijuana (THC) Screen Negative (NEGATIVE) White Blood Count 5.4 K/UL (4.8-10.8) Red Blood Count 3.71 M/UL (4.20-5.40) L Hemoglobin 11.9 G/DL (12.0-16.0) L Hematocrit 36.1 % (37.0-47.0) L Mean Corpuscular Volume 97 FL (80-99) Mean Corpuscular Hemoglobin 32.1 PG (27.0-31.0) H Mean Corpuscular Hemoglobin Concent 33.0 G/DL (32.0-36.0) Red Cell Distribution Width 13.2 % (11.6-14.8) Platelet Count 165 K/UL (150-450) Mean Platelet Volume 9.1 FL (6.5-10.1) Neutrophils (%) (Auto) 49.7 % (45.0-75.0) Lymphocytes (%) (Auto) 30.5 % (20.0-45.0) Monocytes (%) (Auto) 16.9 % (1.0-10.0) H Eosinophils (%) (Auto) 2.2 % (0.0-3.0) Basophils (%) (Auto) 0.7 % (0.0-2.0) Sodium Level 137 MMOL/L (136-145) Potassium Level 4.0 MMOL/L (3.5-5.1) Chloride Level 105 MMOL/L (98-107) Carbon Dioxide Level 26 MMOL/L (21-32) Anion Gap 6 mmol/L (5-15) Blood Urea Nitrogen 16 mg/dL (7-18) Creatinine 0.8 MG/DL (0.55-1.30) Estimat Glomerular Filtration Rate > 60 mL/min (>60) Glucose Level 83 MG/DL (74-106) Calcium Level 8.8 MG/DL (8.5-10.1) Total Bilirubin 0.7 MG/DL (0.2-1.0) Aspartate Amino Transf (AST/SGOT) 127 U/L (15-37) H Alanine Aminotransferase (ALT/SGPT) 152 U/L (12-78) H Alkaline Phosphatase 614 U/L (46-116) H Total Protein 8.4 G/DL (6.4-8.2) H Total Protein (PEP) Pending Albumin 2.7 G/DL (3.4-5.0) L Albumin (PEP) Pending Globulin 5.7 g/dL Globulin (PEP) Pending Albumin/Globulin Ratio Pending Hatgx-8-Nwhcsocaw Pending Hoccu-2-Ukqojlpyf Pending Beta Globulins Pending Beta Gamma Globulin Pending PEP Abnormal Protein Bands Pending Protein Electrophoresis Interpret Pending Microbiology Date/Time Source Procedure Growth Status 04/15/18 13:20 Urine,Clean Catch Urine Culture - Final Strep Agalactiae Group B Complete Braden Diaz M.D. Apr 18, 2018 12:40
--- NOTE | 2018-04-18 12:49 | GI Progress Note ---
Assessment/Plan Problems: (1) Abnormal LFTs ICD Codes: R94.5 - Abnormal results of liver function studies SNOMED: 801232306 (2) Hypothyroid ICD Codes: E03.9 - Hypothyroidism, unspecified SNOMED: 36282100 Qualifiers: (3) Hypertensive urgency ICD Codes: I16.0 - Hypertensive urgency SNOMED: 714236379 (4) Constipation ICD Codes: K59.00 - Constipation, unspecified SNOMED: 36267629 Status: stable Status Narrative Discussed with Dr. Duvall. Assessment/Plan hepatitis panel >> negative abdominal U/S negative utox negative Nausea / dizziness most likely from hypertensive crisis BP/DM management zofran prn AP CT pending cardiac diet bowel regime given hx of hypothyroidism electrolyte correction trend LFTs fu labs recommend for outpatient EGD/colonoscopy for initial screening outpatient f/u for SPEP The patient was seen and examined at bedside and all new and available data was reviewed in the patients chart. I agree with the above findings, impression and plan. (Patient seen earlier today. Signature stamp does not reflect patient encounter time.). - Juan Pablo Duvall MD Subjective Subjective dizziness improved tolerating diet denies abdominal pain Objective Last 24 Hour Vital Signs Date Time Temp Pulse Resp B/P (MAP) Pulse Ox O2 Delivery O2 Flow Rate FiO2 04/18/18 11:35 97.9 79 18 122/79 100 Room Air 97.9 04/18/18 08:39 80 118/79 04/18/18 08:39 80 118/79 04/18/18 08:00 83 04/18/18 08:00 98.2 80 18 118/79 98 Room Air 98.2 04/18/18 04:00 71 04/18/18 04:00 97.7 72 18 115/74 95 Room Air 97.7 04/18/18 00:00 77 04/17/18 22:06 86 153/90 04/17/18 20:00 87 04/17/18 20:00 97.8 86 18 153/90 97 Room Air 97.8 04/17/18 16:00 94 04/17/18 15:39 97.8 95 18 149/81 97 Room Air 97.8 Intake and Output 04/17/18 04/18/18 19:00 07:00 Intake Total 350 ml Balance 350 ml Intake Oral 240 ml IV Total 110 ml # Voids 4 2 # Bowel Movements 1 Laboratory Tests Test 04/17/18 13:12 04/18/18 05:52 Urine Opiates Screen Negative (NEGATIVE) Urine Barbiturates Screen Negative (NEGATIVE) Phencyclidine (PCP) Screen Negative (NEGATIVE) Urine Amphetamines Screen Negative (NEGATIVE) Urine Benzodiazepines Screen Negative (NEGATIVE) Urine Cocaine Screen Negative (NEGATIVE) Urine Marijuana (THC) Screen Negative (NEGATIVE) White Blood Count 5.4 K/UL (4.8-10.8) Red Blood Count 3.71 M/UL (4.20-5.40) L Hemoglobin 11.9 G/DL (12.0-16.0) L Hematocrit 36.1 % (37.0-47.0) L Mean Corpuscular Volume 97 FL (80-99) Mean Corpuscular Hemoglobin 32.1 PG (27.0-31.0) H Mean Corpuscular Hemoglobin Concent 33.0 G/DL (32.0-36.0) Red Cell Distribution Width 13.2 % (11.6-14.8) Platelet Count 165 K/UL (150-450) Mean Platelet Volume 9.1 FL (6.5-10.1) Neutrophils (%) (Auto) 49.7 % (45.0-75.0) Lymphocytes (%) (Auto) 30.5 % (20.0-45.0) Monocytes (%) (Auto) 16.9 % (1.0-10.0) H Eosinophils (%) (Auto) 2.2 % (0.0-3.0) Basophils (%) (Auto) 0.7 % (0.0-2.0) Sodium Level 137 MMOL/L (136-145) Potassium Level 4.0 MMOL/L (3.5-5.1) Chloride Level 105 MMOL/L (98-107) Carbon Dioxide Level 26 MMOL/L (21-32) Anion Gap 6 mmol/L (5-15) Blood Urea Nitrogen 16 mg/dL (7-18) Creatinine 0.8 MG/DL (0.55-1.30) Estimat Glomerular Filtration Rate > 60 mL/min (>60) Glucose Level 83 MG/DL (74-106) Calcium Level 8.8 MG/DL (8.5-10.1) Total Bilirubin 0.7 MG/DL (0.2-1.0) Aspartate Amino Transf (AST/SGOT) 127 U/L (15-37) H Alanine Aminotransferase (ALT/SGPT) 152 U/L (12-78) H Alkaline Phosphatase 614 U/L (46-116) H Total Protein 8.4 G/DL (6.4-8.2) H Total Protein (PEP) Pending Albumin 2.7 G/DL (3.4-5.0) L Albumin (PEP) Pending Globulin 5.7 g/dL Globulin (PEP) Pending Albumin/Globulin Ratio Pending Rjwcd-4-Jbrhlzbwi Pending Abylf-3-Uwhoxwhlt Pending Beta Globulins Pending Beta Gamma Globulin Pending PEP Abnormal Protein Bands Pending Protein Electrophoresis Interpret Pending Height (Feet): 5 Height (Inches): 4.00 Weight (Pounds): 160 General Appearance: WD/WN, no apparent distress, alert Cardiovascular: normal rate Respiratory/Chest: normal breath sounds, no respiratory distress Abdominal Exam: normal bowel sounds, non tender, soft Extremities: normal range of motion, non-tender Jessika Reyes WEBBING SUPERVISOR Apr 18, 2018 12:49
[2018-04-18] MEDS: cefTRIAXone 1 GM in D5W 110 ML IVPB SCH (13:00)
--- NOTE | 2018-04-19 04:56 | Discharge Summary ---
Discharge Summary Discharge Summary _ DATE OF ADMISSION: 04/15/2018 DATE OF DISCHARGE: 04/18/2018 ATTENDING: Dr. William Smith CONSULTANTS: Dr. Grupo Diaz BRIEF HOSPITAL COURSE: Patient is a 68-year-old -[place] female, who presented with chief complaint of "I did not like the way I was feeling". History started on , 04/12/2018, patient began to feel unsteady on her feet. She denied vertigo or dizziness. She had a strange feeling in her head that has been intermittent and was worse when she stood up. She denied palpitations, or ringing in the ears, nor chest pain. She felt better when she lays back or when resting. She had occasional nausea but doesn't seem to be associated with these episodes. She has history of hypertension and hypothyroidism, however, has been off medications for a year. On evaluation at ED, she was noted to have elevated blood pressure 187/91. EKG done was in normal sinus rhythm with no acute changes. Blood work with negative troponin. TSH was 18, free thyroxine 0.48, free triiodothyronine 2.2. She had elevated liver function tests, AST 137, ALT 170, alkaline phosphatase 631. Urinalysis showed WBC 15-20, RBC 2-4, leukocyte esterase 3+, negative nitrite, 2+ occult blood and few bacteria. Chest x-ray with no acute findings. She had slightly low potassium levels, she was given potassium chloride 40 meq , she also was given amlodipine for high blood pressure. She was then admitted for evaluation of ataxia and uncontrolled hypertension. She was started empirically on ceftriaxone. She was given amlodipine and levothyroxine 100 g daily. She was seen by decal applier, Coreg 3.125 mg was added to her regimen. She was advised low salt diet and to have outpatient stress test for risk stratification. She was placed on baby aspirin daily. Echocardiogram was done and revealed normal left ventricular function, no significant valvular disease. She was also seen by hand kiss setter, she was continued on 100 g of levothyroxine and was advice repeat thyroid function test in 6 weeks. Thyroid ultrasound was done, however no official results available at time of dictation. She had elevated liver function tests, GI evaluation was done. Abdominal ultrasound with no acute findings. CT of the chest abdomen and pelvis with no acute findings. Hepatitis panel was negative. Urine toxicology was negative. Patient was with low energy and depressed mood. Patient was anxious and with anhedonia. She was seen by a psychiatrist. Blood pressure improved. LFTs were downtrending. Urine culture showed growth of group B strep with low colony count. She was eventually discharged home. 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 DISCHARGE MEDICATIONS: Refer to Discharge Medication List. DISCHARGE INSTRUCTIONS: Follow up with Dr. Smith in a week. Will need outpatient stress testing; recheck TSH in 6 weeks. I have been assigned to dictate discharge summary on this account, and I was not involved in the patient's management. Kelsey Noel NP Apr 19, 2018 04:56
--- NOTE | 2018-04-19 16:35 | Diagnostic Imaging Report ---
Indication: History of hypothyroidism. Assess for mass. Technique: A plantar grayscale and color Doppler imaging of the thyroid. Comparison: None Findings: The isthmus measures approximately 3 mm in thickness. The right lobe of the thyroid 6.7 x 3.3 x 3.5 cm. The left lobe measures 6.1 x 2.8 x 4.1 cm. Both thyroid lobes are enlarged with heterogeneous echotexture and increased color flow. No discrete mass lesion is appreciated. There may be a punctate calcification in the periphery of the left lobe. IMPRESSION: Enlarged heterogeneous thyroid as above without discrete mass lesion. Potential considerations include Donna's thyroiditis. Additional thyroid pathology is not excluded. Correlation with thyroid function tests recommended. Recommend endocrinologic follow-up.
== END 2018-04-18 15:24 | disposition home or self-care (01) | DRG 690 ==
LOC: EMR 12:00 → 2E 15:48 → MERGE 15:48 → EDBEDREQ 16:21
DX: N39.0 Urinary tract infection, site not specified (principal); I16.0 Hypertensive urgency; B95.1 Streptococcus, group B, as the cause of diseases classified elsewhere; E03.9 Hypothyroidism, unspecified; R74.0 Nonspecific elevation of levels of transaminase and lactic acid dehydrogenase [LDH]; R27.0 Ataxia, unspecified; K59.00 Constipation, unspecified; F32.9 Major depressive disorder, single episode, unspecified; Z91.14 Patient's other noncompliance with medication regimen; E04.9 Nontoxic goiter, unspecified
CPT/HCPCS: 36415; 71045; 71260; 74177; 76536; 76700; 80053; 80307; 81003; 82550; 83880; 84165; 84439; 84443; 84481; 84484; 85025; 85610; 85651; 85730; 86705; 86709; 86803; 87086; 87340; 93005; 93306; 99285; J8499

== ENCOUNTER 2018-08-20 13:32 | Outpatient (CLI) | payer MEDICAID, MEDICARE ==
[~2018-08-20] VITALS: Ht 162.6 cm; Wt 69.4 kg
[~2018-08-20 13:32] MED LIST: ASPIRIN81 MG ORAL; NKM; NORVASC10 MG ORAL; SYNTHROID100 MCG ORAL
[2018-08-20 15:27] VITALS: BP 163/93
[2018-08-20] MEDS ORDERED: CARVEDILOL6.25 MG ORAL (15:29)
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
== END 2018-08-20 14:02 | disposition home or self-care (01) ==
LOC: PAN 13:32
DX: R79.89 Other specified abnormal findings of blood chemistry (principal); E03.9 Hypothyroidism, unspecified; I10 Essential (primary) hypertension
CPT/HCPCS: 99202

== ENCOUNTER 2018-08-27 14:15 | Outpatient (CLI) | payer MEDICARE ==
[~2018-08-27 14:15] MED LIST changes: +CARVEDILOL6.25 MG ORAL
[2018-08-27 14:20] VITALS: BP 141/107
--- NOTE | 2018-08-30 15:43 | GI Progress Note ---
Assessment/Plan Problems: (1) Hypothyroidism ICD Codes: E03.9 - Hypothyroidism, unspecified SNOMED: 41697457 (2) HTN (hypertension) ICD Codes: I10 - Essential (primary) hypertension SNOMED: 55233919 (3) Abnormal LFTs ICD Codes: R94.5 - Abnormal results of liver function studies SNOMED: 094838928 Status: stable Status Narrative Seen with Dr. Duvall. Assessment/Plan elevated LFTs from lab review back in April will need current lab draw >> CMP, DEBBIE, SMA, AMA, IgG, Ceruloplasmin, alpha- antitrypsin RTC after labs resulted will follow with additional recs The patient was seen and examined at bedside and all new and available data was reviewed in the patients chart. I agree with the above findings, impression and plan. (Patient seen earlier today. Signature stamp does not reflect patient encounter time.). - Juan Pablo Duvall MD Subjective Gastrointestinal/Abdominal: Reports: no symptoms Subjective increased fatigue Objective T 98.6 BP 171/101 HR 85 97 RA General Appearance: WD/WN, no apparent distress, alert Cardiovascular: normal rate Respiratory/Chest: normal breath sounds, no respiratory distress Abdominal Exam: normal bowel sounds, non tender, soft Extremities: normal range of motion, non-tender Jessika Reyes NP Aug 30, 2018 15:43
== END 2018-08-27 14:45 | disposition home or self-care (01) ==
LOC: PAN 14:15
DX: R94.5 Abnormal results of liver function studies (principal); E03.9 Hypothyroidism, unspecified; I10 Essential (primary) hypertension
CPT/HCPCS: 99212